=== PATIENT | female | born 1965 | race Two or more races ===

== ENCOUNTER 2020-04-09 07:29 | Day surgery (SDC) | payer OTHER, SELFPAY ==
[2020-04-03 19:18] VITALS: BMI 25.0
--- NOTE | 2020-04-08 09:33 | P.CONAN_ITS ---
Documented by User: Concepción Sheffield 04/08/20 09:34 HPI - Anesthesia Eval Consult details Narrative: 54yo F for Colonoscopy PMFSH Past Medical History Medical History Arthritis Back pain Smoker Surgical History Surgical History H/O hemorrhoidectomy (2007) H/O laminectomy H/O tubal ligation H/O: hysterectomy History of colonoscopy Hx of appendectomy (2005) Social History Social History Smoking Status: Current every day smoker Tobacco Type: Cigarette Packs Per Day: 0 Cigarettes Per Day: 4 Years Smoked: 17 Smoked in Last 30 Days: Yes Patient Interested in Nicotine Replacement: No Patient Given Instructions on How to Stop Smoking: Yes Date Education Initiated: 03/27/20 Second Hand Smoke Exposure: No Use of substances other than those prescribed or required for medical reasons: No Advance Directives: No Advance Directives Information Provided: No Advance Directives on File: No Recently lost weight without trying: No Meds Allergies Allergy/AdvReac Type Severity Reaction Status Date / Time Penicillins Allergy Mild ITCH/RASH Unverified 04/04/20 08:21 Home Medications Medication Instructions Recorded Confirmed Type buprenorphine-naloxone [Zubsolv] 3 tab SUBLINGUAL DAILY 04/03/20 04/03/20 History Exam Exam Date and Time: April 08, 2020 0933 Height,Weight and Vital Signs: Height 5 ft 7 in Weight 72.575 kg Assessment and Plan Assessment Anesthesia Assessment: Chart Reviewed Documented by User: Donavan Galvan 04/09/20 08:46 [facility] Past Medical History Medical History Arthritis Back pain Smoker Surgical History Surgical History H/O hemorrhoidectomy (2007) H/O laminectomy H/O tubal ligation H/O: hysterectomy History of colonoscopy Hx of appendectomy (2005) Social History Social History Smoking Status: Current every day smoker Tobacco Type: Cigarette Packs Per Day: 0 Cigarettes Per Day: 4 Years Smoked: 17 Smoked in Last 30 Days: Yes Patient Interested in Nicotine Replacement: No Patient Given Instructions on How to Stop Smoking: Yes Date Education Initiated: 03/27/20 Second Hand Smoke Exposure: No Use of substances other than those prescribed or required for medical reasons: No Advance Directives: No Advance Directives Information Provided: No Advance Directives on File: No Recently lost weight without trying: No Meds Allergies Allergy/AdvReac Type Severity Reaction Status Date / Time Penicillins Allergy Mild ITCH/RASH Unverified 04/04/20 08:21 Home Medications Medication Instructions Recorded Confirmed Type buprenorphine-naloxone [Zubsolv] 3 tab SUBLINGUAL DAILY 04/03/20 04/03/20 History Exam Airway Mallampati Class: II TM Dist: >3cm Neck ROM: Full Denture: Upper
[2020-04-09 08:43] VITALS: BP 112/62; PULSE 66; RESP 16; TEMP 36; O2SAT 97
[2020-04-09] MEDS: Lactated Ringers 1,000 ML 100 ML IVCONT (08:54)
--- NOTE | 2020-04-09 09:13 | W.PM.OPN ---
Operative Note Operative Note Date of Service: 04/09/20 Narrative: Pre-op diagnosis: Screening, chronic constipation Post-op diagnosis: other (colon polyps, diverticulosis, hemorrhoids) Procedure: COLONOSCOPY TILL CECUM WITH BIOPSIES Consent: Indications for the procedure and potential complications of bleeding, perforation, reaction to medications and missed diagnosis were discussed with the patient and informed consent was obtained. Instrument: Olympus PCF H 190 L variable stiffness pediatric colonoscope Monitoring: Vital signs and clinical assessment, intermittent blood pressure monitoring, continuous EKG monitoring, Pulse oximetry and Carbon Dioxide monitoring were done throughout the procedure. Colon withdrawl time was 22 minutes. Procedure: The patient was placed in the left lateral decubitis position and pre-procedure medications were administered. After a digital rectal examination of the ano-rectum, the video colonoscope was inserted into the rectum and advanced through the colon to the cecum. The colonoscope was slowly withdrawn in a retrograde panoramic fashion and the colon mucosa was carefully examined including a retroflexed view of the rectum. Findings and interventions are described below. Procedure Difficulty: LLQ pressure applied to intubate the transverse colon/cecum Findings: Terminal Ileum: Not evaluated Cecum: Normal Ascending Colon: Normal Transverse Colon: Normal Descending Colon: Moderate diverticulosis Sigmoid Colon: A few 4-5 mm diminutive polyps - two were biopsied. Moderate to severe diverticulosis Rectum: Normal Ano-rectum: Small internal hemorrhoids Colon preparation: Good after copious irrigation Impression and Post Procedure Diagnosis: Colonoscopy Findings: Two diminutive polyps were biopsied. Moderate diverticulosis seen in the left colon Small hemorrhoids on retroflexed exam. Plan: Await pathology results Patient has an appointment on 04/22/20 in the GI Clinic with Alta Bejarano NP. Repeat Colonoscopy interval based on path results - in 5 years if polyps are adenomatous and due to FH of colon polyps. Above findings were reviewed with the patient and colon polyps and diverticulosis handouts were given in the discharge area. Surgeon: Alejo Sharp MD Anesthesia: MAC (NOEL Kevin) Estimated blood loss (mL): 0 Pathology: other (A. SC polyp x 1) Condition: stable Disposition: PACU
--- NOTE | 2020-04-09 09:13 | MHC.SHP ---
Pre-Procedural Eval Section A The patient is an INPATIENT: No The History & Physical has been completed within 30 days and I have reviewed it.: No Section B Chief Complaint: SCREENING, FAMILY HX OF COLON POLYPS Details of Present Illness: screening, constipation Relevant Family History (Specify if Yes): Yes Relevant Social History: Tobacco Use Present Medications: see Short Stay Collaborative assessment Medical History: Significant History (Constipation. Hemorrhoids. Low back pain. Pre-diabetes. Dyspepsia. Incontinence. Vaginal prolapse. Hypertension. Opioid dependency. ) History of Previous Operations: Relevant previous surgery/procedure and date(s) (hysterectomy 2005 appendectomy 2004 back surgery 2004 hemorrhoidectomy colonoscopy-Dr. Long 2006 ) Allergies: Allergies Allergy/AdvReac Type Severity Reaction Status Date / Time Penicillins Allergy Mild ITCH/RASH Verified 04/09/20 08:54 Review of Systems Sugical H&P ROS: Negative: Constitution, Cardiovascular and Respiratory and Yes, Specify: Gastrointestinal (constipation) Exam Surgical H&P Exam: Normal: Heart, Normal: Lungs, Normal: Extremities and Normal: Abdomen Plan Diagnosis/Plan: Unchanged Patient has been examined and remains a candidate for the planned procedure
[2020-04-09 10:07] VITALS: BP 126/72; PULSE 62; RESP 16; TEMP 36.2; O2SAT 99
[2020-04-09 10:22] VITALS: BP 122/71; PULSE 57; RESP 16; TEMP 36.1; O2SAT 97
--- NOTE | 2020-04-09 10:46 | HO.POSTANES ---
Post Anesthesia Evaluation Post Anesthesia Evaluation Vital Signs: Vital Signs Temp Pulse Resp BP Pulse Ox 04/09/20 10:22 97 F 57 16 122/71 97 04/09/20 10:07 97.1 F 62 16 126/72 99 04/09/20 08:43 96.8 F 66 16 112/62 97 Anesthesia: Monitored Mental Status: Awake Pain Control: Satisfactory Nausea/Vomiting: None Hydration: Adequate Anesthesia-Related Issues: No Anes. Related Issues
== END 2020-04-09 10:55 | disposition home or self-care (01) ==
PROVIDERS: PCP Internal Medicine Geriatric Medicine; Visit Provider Internal Medicine Gastroenterology
PROC: 0DJD8ZZ Inspection of Lower Intestinal Tract, Via Natural or Artificial Opening Endoscopic (ICD-10-PCS; CPT 45378; principal; 2020-04-09 09:30)
DX: Z12.11 Encounter for screening for malignant neoplasm of colon (principal); K63.5 Polyp of colon; K57.30 Diverticulosis of large intestine without perforation or abscess without bleeding; K64.8 Other hemorrhoids; K59.09 Other constipation; Z83.71 Family history of colonic polyps; Z88.0 Allergy status to penicillin
CPT/HCPCS: 45380; 88305

== ENCOUNTER → 2020-04-22 15:24 | Outpatient (BNVA) | payer OTHER, SELFPAY | PROVIDERS: PCP Internal Medicine Geriatric Medicine; Visit Provider Nurse Practitioner | DX: Z76.89 Persons encountering health services in other specified circumstances (principal) ==

== ENCOUNTER 2020-09-03 12:39 | Outpatient (REF) | payer BC, SELFPAY ==
--- NOTE | ~2020-09-03 | XR_ITS ---
EXAMINATION: LEFT FOOT AND LEFT HIP X-RAY CLINICAL INFORMATION: Pain COMPARISON: None TECHNIQUE: 3 views of the left foot and 3 views of the left hip FINDINGS: Bone alignment is normal. No fracture or dislocation is seen. The joint spaces are normal. There are calcaneal spurs. Soft tissues are otherwise normal. XR/XR hip LT min 2V IMPRESSION: Calcaneal spurs otherwise unremarkable exam. EXAMINATION: Left hip x-ray CLINICAL INFORMATION: Pain COMPARISON: None. TECHNIQUE: 2 views of the left hip FINDINGS: Bone alignment is normal. No fracture or dislocation is seen. There are small inferior acetabular osteophytes. Joint spaces otherwise normal. There are surgical cheri project inferior to the pubic symphysis. Soft tissues are otherwise normal. IMPRESSION: Mild degenerative changes.
--- NOTE | ~2020-09-03 | XR_ITS ---
EXAMINATION: LEFT FOOT AND LEFT HIP X-RAY CLINICAL INFORMATION: Pain COMPARISON: None TECHNIQUE: 3 views of the left foot and 3 views of the left hip FINDINGS: Bone alignment is normal. No fracture or dislocation is seen. The joint spaces are normal. There are calcaneal spurs. Soft tissues are otherwise normal. XR/XR foot LT min 3V IMPRESSION: Calcaneal spurs otherwise unremarkable exam. EXAMINATION: Left hip x-ray CLINICAL INFORMATION: Pain COMPARISON: None. TECHNIQUE: 2 views of the left hip FINDINGS: Bone alignment is normal. No fracture or dislocation is seen. There are small inferior acetabular osteophytes. Joint spaces otherwise normal. There are surgical cheri project inferior to the pubic symphysis. Soft tissues are otherwise normal. IMPRESSION: Mild degenerative changes.
== END 2020-09-03 12:40 | disposition home or self-care (01) ==
LOC: HO.XRAY 12:39
PROVIDERS: PCP Internal Medicine Geriatric Medicine; Visit Provider Internal Medicine Geriatric Medicine
DX: M25.552 Pain in left hip (principal); M79.672 Pain in left foot
CPT/HCPCS: 73502; 73630

== ENCOUNTER 2020-10-29 08:53 | Outpatient (REF) | payer BC, SELFPAY ==
--- NOTE | ~2020-10-29 | XR_ITS ---
EXAMINATION: XR PELVIS CLINICAL INFORMATION: Pain COMPARISON: X-ray of the left hip August 2020 x-ray the pelvis November 2012 TECHNIQUE: AP view of the pelvis. FINDINGS: Postsurgical changes just caudal to the symphysis pubis unchanged with metallic Noted. The bone and joints in the pelvis are otherwise unremarkable. Postsurgical changes overlying the lower lumbar sacral spine unchanged. XR/XR pelvis 1-2V IMPRESSION: No acute abnormality. Stable postsurgical changes
== END 2020-10-29 08:54 | disposition home or self-care (01) ==
LOC: HO.HOSX 08:53
PROVIDERS: Visit Provider Physician Assistant
DX: M54.32 Sciatica, left side (principal)
CPT/HCPCS: 72170

== ENCOUNTER 2021-07-22 12:26 | Outpatient (REF) | payer BC, SELFPAY ==
--- NOTE | ~2021-07-22 | XR_ITS ---
EXAMINATION: XR ANKLE, LEFT CLINICAL INFORMATION: Pain COMPARISON: None TECHNIQUE: AP, lateral, and mortise views of the left ankle. FINDINGS: Bone alignment is normal. No fracture or dislocation is seen. The ankle mortise is normal. There are calcaneal spurs. XR/XR ankle LT min 3V IMPRESSION: Calcaneal spurs.
== END 2021-07-22 12:27 | disposition home or self-care (01) ==
LOC: HO.XRAY 12:26
PROVIDERS: PCP Internal Medicine Geriatric Medicine; Visit Provider Internal Medicine Geriatric Medicine
DX: M25.572 Pain in left ankle and joints of left foot (principal)
CPT/HCPCS: 73610

== ENCOUNTER 2022-12-09 09:30 | Outpatient (REF) | payer BC, SELFPAY ==
[2022-12-09 11:49] LABS: Alanine Aminotransferase 43 U/L (0-31); Albumin Level 4.1 g/dL (3.5-5.0); Alkaline Phosphatase 108 U/L (39-117); Aspartate Amino Transferase 31 U/L (5-31); Bilirubin Direct 0.2 mg/dL (0.0-0.5); Bilirubin Total 0.7 mg/dL (0.0-1.0); Total Protein 7.4 g/dL (6.5-8.0)
== END 2022-12-09 09:31 | disposition home or self-care (01) ==
LOC: HO.HHCL 09:30
PROVIDERS: Visit Provider Emergency Medicine
DX: F11.91 Opioid use, unspecified, in remission (principal)
CPT/HCPCS: 36415; 80076

== ENCOUNTER → 2024-05-03 10:59 | Outpatient (BNV) | payer BC, SELFPAY | PROVIDERS: Visit Provider Radiology Diagnostic Radiology | DX: R07.82 Intercostal pain (principal) | CPT/HCPCS: 71101 ==

== ENCOUNTER 2024-07-18 10:45 | Outpatient (REF) | payer BC, SELFPAY ==
[2024-07-18 14:09] LABS: Alanine Aminotransferase 43 U/L (0-31); Albumin Level 4.2 g/dL (3.5-5.0); Alkaline Phosphatase 168 U/L (39-117); Aspartate Amino Transferase 29 U/L (5-31); Bilirubin Direct 0.3 mg/dL (0.0-0.5); Bilirubin Total 0.9 mg/dL (0.0-1.0); Total Protein 7.4 g/dL (6.5-8.0)
[2024-07-18 14:22] LABS: HIV AB/AG Nonreactive (Nonreactive); HIV Num 1 0.07 S/CO (0.00-0.99); ~HepC Num1 0.25 S/CO (0.00-0.79); ~Hepatitis C Antibody Nonreactive (Nonreactive)
== END 2024-07-18 10:46 | disposition home or self-care (01) ==
LOC: HO.HHCL 10:45
PROVIDERS: Visit Provider Emergency Medicine
DX: F11.91 Opioid use, unspecified, in remission (principal)
CPT/HCPCS: 36415; 80076; 86803; 87389

== ENCOUNTER 2024-11-24 19:43 | Emergency (ER) | payer BC, SELFPAY ==
[2024-11-24 19:49] VITALS: BP 138/65; PULSE 73; RESP 16; TEMP 36.3; O2SAT 95; BMI 23.4
[2024-11-24 20:00] LABS: MANUAL DIFF FLAG NO
[2024-11-24 20:11] LABS: Hematocrit 41.8 % (37.0-47.0); Hemoglobin 14.8 g/dl (12.0-16.0); Imm Gran Abs Auto 0.03 X10*3/uL (0.00-0.03); Imm Gran Pct Auto 0.3 % (0.0-0.4); Lymphocytes Absolute Auto 2.2 X10*3/uL (1.2-4.9); Mean Corpuscular HGB Conc 35.4 g/dl (31.0-35.0); Mean Corpuscular Hemoglobin 30.9 pg (27.0-33.0); Mean Corpuscular Volume 87.3 fL (80.0-98.0); NRBC Abs Auto 0.000 X10*3/uL (0.0-0.012); NRBC Pct Auto 0.0 /100WBC (0.0-0.2); Platelet Count 200 X10*3/uL (160-400); Red Blood Count 4.79 X10*6/uL (4.20-5.50); White Blood Count 8.9 X10*3/uL (4.8-10.8)
[2024-11-24 20:24] LABS: Alanine Aminotransferase 33 U/L (0-31); Albumin Level 4.3 g/dL (3.5-5.0); Alkaline Phosphatase 241 U/L (39-117); Anion Gap 13 (12-20); Aspartate Amino Transferase 24 U/L (5-31); Blood Urea Nitrogen 17 mg/dL (9-16); Calcium 9.1 mg/dL (8.4-10.2); Carbon Dioxide 28 mmol/L (22-29); Chloride 99 mmol/L (96-108); Creatinine Clr Calc Pharmacy 68.5; Estimated Glomerular Filt Rate > 60; Magnesium 1.8 mg/dL (1.6-2.6); Potassium 4.2 mmol/L (3.3-5.1); Sodium 136 mmol/L (135-145); Total Protein 7.0 g/dL (6.5-8.0)
[2024-11-24 21:44] LABS: Appearance Urine Clear; Glucose Urine UA >=1000 mg/dL (Negative); PH 5.5 (5.0-9.0); Specific Gravity - Urine >= 1.030 (1.005-1.025); UMIC TRIGGER UACC YES
--- NOTE | 2024-11-24 21:47 | PC.NURSE ---
pt arrives to ED from . Pt had baseline labs obtained on arrival with critical glucose value of 392. IV access was obtained in left FA, pt placed on ekg monitor. pt is a&o x4- independent at baseline. Primarily maltese speaking- returned from [place] yesterday pt sts that while pt was in [place] she used her mother's glucose meter and her first reading was 480. she states at her lowest was 180 in the AM prior to eating.
--- NOTE | 2024-11-24 21:53 | ED_ITS ---
HPI - General Adult General Chief complaint: General Medical Stated complaint: high blood sugar Time Seen by Provider: 11/24/24 21:32 Source: patient Mode of arrival: ambulatory Limitations: no limitations History of Present Illness ED Provider: Dr. Twila Peres HPI narrative: patient comes to the emergency room complaining of new onset of a high blood sugar. Patient states that she recently returned from [place]. Patient states that while she was there, she noticed that she was drinking a large amount of water and urinating quite a bit. Patient states that both her mother and sister are diabetic, so they checked her sugar. Patient states that her sugar was in the 400s. So patient's knowledge, she has never been told that she is diabetic. Patient states that she has not been seen by a PCP in several years. Related Data Home Medications ?Medication ?Instructions ?Recorded ?Confirmed buprenorphine 1.4 mg-naloxone 0.36 3 tab sublingual DA CHARMAINE 04/03/20 04/03/20 mg sublingual tablet (Zubsolv) Previous Rx's ?Medication ?Instructions ?Recorded lidocaine 5 % topical patch 1 patch topical DAILY #15 ea 05/03/24 metformin 1,000 mg tablet 1,000 mg PO DAILY #90 tabs 0 11/24/24 Allergies Allergy/AdvReac Type Severity Reaction Status Date / Time Penicillins Allergy Mild ITCH/RASH Verified 11/24/24 19:52 Review of Systems 2 Review of Systems: Constitutional : No Weight loss, No Fever, No Chills, No Night Sweats, No Fatigue, No Malaise ENT/Mouth : No Hearing loss, No Ear Pain, No Nasal Congestion, No Sinus Pain, No Hoarseness, No sore throat, No Rhinorrhea, No Swallowing Difficulty Eyes: No Eye Pain, No Swelling, No Redness, No Foreign Body, No Discharge, No Vision Changes Cardiovascular : No Chest Pain, No SOB, No Dyspnea on Exertion, No Orthopnea, No Edema, No Palpitations Respiratory : No Cough, No Sputum, No Wheezing, No Smoke Exposure, No Dyspnea Gastrointestinal : No Nausea, No Vomiting, No Diarrhea, No Constipation, No abdominal Pain, No Hematochezia, No Melena Genitourinary : no irregular bleeding, No Dysuria, No Urinary Frequency, No Hematuria, No Urinary Incontinence, No Urgency, No Flank Pain, No Urinary Flow Changes, No Hesitancy Musculoskeletal : No joint pain, No Myalgias, No Joint Swelling Skin : No Skin Lesions, No rash Neuro : No Weakness, No Numbness, No Paresthesias, No Loss of Consciousness, No Dizziness, No Headache Psych : No Anxiety/Panic, No Depression, No SI/HI/AH/VH, No Social Issues, Heme/Lymph: No Bruising, No Bleeding,No Lymphadenopathy Endocrine: complaining of new onset of polyuria and polydipsia PMFSH Past Medical History Medical History Smoker Arthritis Back pain Surgical History H/O hemorrhoidectomy (2007) H/O laminectomy H/O tubal ligation H/O: hysterectomy History of colonoscopy Hx of appendectomy (2005) Family History Family History Father Colon cancer Mother HTN (hypertension) Diverticulitis Social History Social History (System 12/15/23 @ 09:56 by Carmen Reese) Alcohol intake: current Alcohol intake frequency: holidays/special occasions only Cigarette Packs Per Day: 0 Cigarettes Per Day: 4 Years Smoked: 17 Smoked in Last 30 Days: Yes Second Hand Smoke Exposure: No Use of substances other than those prescribed or required for medical reasons: No Advance Directives: No Advance Directives Information Provided: No Do you have a plan to hurt others: No Plan Patient : No Current occupational status: employed 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 Oriented X3. No acute distress. Eyes: Pupils equal, round and reactive to light. ENT: Pharynx normal. Neck: Normal inspection. Neck supple. No lymph nodes noted. No crepitus CVS: Normal heart rate and rhythm. Pulses normal. Normal S1 and S2 Respiratory: No respiratory distress. Breath sounds normal. No Wheezing. No rales Abdomen: Soft and nontender. No rigidity. No distention. Skin: Skin warm and dry. Normal skin color. Normal skin turgor. Extremities: No lower extremity edema. No Lacerations. No Rash Neuro: Oriented X 3. No motor deficit. No sensory deficit. Moving all extremities. No slurred speech. CN 2 through 12 grossly intact Psych: calm, cooperative, normal affect Vital Signs: Vital Signs - 24 hr 08/01/25 19:49 11/24/24 22:43 Temperature 97.3 F Pulse Rate 73 59 Respiratory Rate 16 16 Blood Pressure 138/65 127/74 Pulse Oximetry 95 97 Oxygen Delivery Method Room Air Room Air BMI result Body Mass Index 23.4 Course Course Course Narrative: patient reports new onset polyuria polydipsia, patient's family checked her glucose for several days throughout last week, patient reports a blood glucose of an average of 400 today, patient's glucose 392. Patient receiving IV fluids and IV insulin. Medications Administered Discontinued Medications Generic Name Dose Route Start Last Admin Trade Name Freq PRN Reason Stop Dose Admin Sodium Chloride 1,000 mls @ 999 mls/hr 11/24/24 21:53 11/24/24 22:23 Ns IVCONT 11/24/24 22:53 999 mls/hr .Q1H1M ONE Administration Insulin Human Regular 5 unit 11/24/24 21:53 11/24/24 22:20 Insulin Regular, Human 100 Unit/Ml 10 Ml Vial IVPUSH 11/24/24 21:54 5 unit ONCE ONE Administration Medical Decision Making Medical Decision Making [facility] Narrative: my interpretation of labs: No significant abnormality patient's hematology or chemistry, glucose 392, anion gap 13 I discussed with the patient that we will be giving her insulin here in the emergency room to decrease her glucose. However, at home she will be starting on metformin. Discussed with the patient to do start low-dose and eventually go up to 1000 mg within a couple of weeks. Patient aware that she will likely have GI symptoms patient's glucose improved to 187, patient asymptomatic. Patient will follow- up with her PCP Differential Diagnosis Differential Diagnoses: The differential diagnosis associated with the presentation includes ( Hyperglycemia, new onset type 2 diabetes) Admission/Observation Consideration of admission/observation: Escalation of care including admission/observation considered ( given patient's new diagnosis of diabetes, observation was considered) Lab Data [facility] Lab Attestation statement: I reviewed the patient's lab results. 11/24/24 19:56 11/24/24 19:56 Labs: Lab Results 11/24/24 11/24/24 11/24/24 Range/Units 19:56 21:25 21:35 WBC 8.9 (4.8-10.8) X10*3/uL RBC 4.79 (4.20-5.50) X10*6/uL Hgb 14.8 (12.0-16.0) g/dl Hct 41.8 (37.0-47.0) % MCV 87.3 (80.0-98.0) fL MCH 30.9 (27.0-33.0) pg MCHC 35.4 H (31.0-35.0) g/dl RDW 11.9 (11.0-16.0) % Plt Count 200 (160-400) X10*3/uL MPV 10.2 (9.4-12.3) fL Immature Gran % (Auto) 0.3 (0.0-0.4) % Neut % (Auto) 63.8 (45-73) % Lymph % (Auto) 24.4 (20-40) % [place] % (Auto) 8.8 (2-11) % Eos % (Auto) 2.1 (0-4) % Baso % (Auto) 0.6 (0-2) % Lymph # (Auto) 2.2 (1.2-4.9) X10*3/uL [place] # (Auto) 0.8 (0.1-1.2) X10*3/uL Eos # (Auto) 0.2 (0.0-0.4) X10*3/uL Baso # (Auto) 0.1 (0.0-0.2) X10*3/uL Abs Immat Gran (auto) 0.03 (0.00-0.03) X10*3/uL Absolute Neuts (auto) 5.7 (2.0-8.3) x10*3/uL Absolute Nucleated RBC 0.000 (0.0-0.012) X10*3/uL Nucleated RBC % (auto) 0.0 (0.0-0.2) /100WBC Hold Blue Top SEE NOTE Sodium 136 (135-145) mmol/L Potassium 4.2 (3.3-5.1) mmol/L Chloride 99 (96-108) mmol/L Carbon Dioxide 28 (22-29) mmol/L Anion Gap 13 (12-20) BUN 17 H (9-16) mg/dL Creatinine 0.88 (0.5-1.4) mg/dL Estim Creat Clear Calc 68.5 Estimated GFR > 60 POC Glucose (60-115) mg/dL Random Glucose 392 H* (60-115) mg/dL Calcium 9.1 (8.4-10.2) mg/dL Magnesium 1.8 (1.6-2.6) mg/dL Total Bilirubin 0.8 (0.0-1.0) mg/dL AST 24 (5-31) U/L ALT 33 H (0-31) U/L Alkaline Phosphatase 241 H (39-117) U/L Total Protein 7.0 (6.5-8.0) g/dL Albumin 4.3 (3.5-5.0) g/dL Urine Color Yellow Urine Appearance Clear Urine pH 5.5 (5.0-9.0) Ur Specific Martin >= 1.030 H (1.005-1.025) Urine Protein Negative (Neg-Trace) mg/dL Urine Glucose (UA) >=1000 H (Negative) mg/dL Urine Ketones Negative (Negative) mg/dL Urine Blood Negative (Negative) Urine Nitrite Negative (Negative) Ur Leukocyte Esterase Negative (Negative) Urine RBC 0-2 (0-2) /HPF Urine WBC 0-5 (0-5) /HPF Ur Squamous Epith Cells 0-2 (0-2) /HPF Urine Bacteria None Seen (None Seen) Hyaline Casts 0-2 (0-2) /LPF 11/24/24 Range/Units 22:52 WBC (4.8-10.8) X10*3/uL RBC (4.20-5.50) X10*6/uL Hgb (12.0-16.0) g/dl Hct (37.0-47.0) % MCV (80.0-98.0) fL MCH (27.0-33.0) pg MCHC (31.0-35.0) g/dl RDW (11.0-16.0) % Plt Count (160-400) X10*3/uL MPV (9.4-12.3) fL Immature Gran % (Auto) (0.0-0.4) % Neut % (Auto) (45-73) % Lymph % (Auto) (20-40) % [place] % (Auto) (2-11) % Eos % (Auto) (0-4) % Baso % (Auto) (0-2) % Lymph # (Auto) (1.2-4.9) X10*3/uL [place] # (Auto) (0.1-1.2) X10*3/uL Eos # (Auto) (0.0-0.4) X10*3/uL Baso # (Auto) (0.0-0.2) X10*3/uL Abs Immat Gran (auto) (0.00-0.03) X10*3/uL Absolute Neuts (auto) (2.0-8.3) x10*3/uL Absolute Nucleated RBC (0.0-0.012) X10*3/uL Nucleated RBC % (auto) (0.0-0.2) /100WBC Hold Blue Top Sodium (135-145) mmol/L Potassium (3.3-5.1) mmol/L Chloride (96-108) mmol/L Carbon Dioxide (22-29) mmol/L Anion Gap (12-20) BUN (9-16) mg/dL Creatinine (0.5-1.4) mg/dL Estim Creat Clear Calc Estimated GFR POC Glucose 187 H (60-115) mg/dL Random Glucose (60-115) mg/dL Calcium (8.4-10.2) mg/dL Magnesium (1.6-2.6) mg/dL Total Bilirubin (0.0-1.0) mg/dL AST (5-31) U/L ALT (0-31) U/L Alkaline Phosphatase (39-117) U/L Total Protein (6.5-8.0) g/dL Albumin (3.5-5.0) g/dL Urine Color Urine Appearance Urine pH (5.0-9.0) Ur Specific Martin (1.005-1.025) Urine Protein (Neg-Trace) mg/dL Urine Glucose (UA) (Negative) mg/dL Urine Ketones (Negative) mg/dL Urine Blood (Negative) Urine Nitrite (Negative) Ur Leukocyte Esterase (Negative) Urine RBC (0-2) /HPF Urine WBC (0-5) /HPF Ur Squamous Epith Cells (0-2) /HPF Urine Bacteria (None Seen) Hyaline Casts (0-2) /LPF Critical Care Time Critical Care Time Critical Care Time: Yes Total Critical Care Time: 40 Attestation: I have personally provided critical care time. Time includes review of lab data, radiology results, discussion with consultants, and monitoring for potential decompensation. Intervention performed as documented. Discharge Plan Discharge Clinical Impression: Diabetes mellitus, new onset Patient Disposition: Home, Self-Care Instructions: Type 2 Diabetes in Adults: New Diagnosis (DC), Diabetes and Nutrition (ED), Diabetes and Exercise (ED), Type 2 Diabetes Management for Adults (ED) Additional Instructions: Please follow-up with your primary care physician tomorrow. If you have any worsening or new symptoms, please return to the emergency room or call 911 Prescriptions: New metformin 1,000 mg tablet 1,000 mg PO DAILY Qty: 90 0RF Rx Instructions: for the 1st week, take half tablet b.i.d., then starting the 2nd week, 1 tablet p.o. b.i.d. No Action Zubsolv 1.4-0.36 mg tablet, sublingual 3 tab sublingual DAILY lidocaine 5 % adhesive patch,medicated 1 patch topical DAILY Qty: 15 0RF Rx Instructions: leave on most painful area for up to 12 hrs Stand Alone Forms: Work/School Release Print Language: Cuban
[2024-11-24 22:43] VITALS: BP 127/74; PULSE 59; RESP 16; O2SAT 97
--- NOTE | 2024-11-24 22:54 | PC.NURSE ---
POC 187 notified
[2024-11-24 22:56] LABS: Glucose, Whole Blood 187 mg/dL (60-115)
[2024-11-25 00:07] VITALS: BP 127/74; PULSE 59; RESP 16; TEMP 36.8; O2SAT 97
[2024-11-25 03:16] LABS: Hemoglobin A1C 395.5122 umol/L; Total Hemoglobin (HGBA1C) 3835.2256 umol/L
[2024-11-27 09:24] LABS: Glucose, Whole Blood 376 mg/dL (60-115)
== END 2024-11-25 00:07 | disposition home or self-care (01) ==
PROVIDERS: Emergency Provider Emergency Medicine
DX: E11.9 Type 2 diabetes mellitus without complications (principal); E16.2 Hypoglycemia, unspecified
CPT/HCPCS: 36415; 80053; 81001; 82947; 83036; 83735; 85025; 96361; 96374; 99284

== ENCOUNTER 2025-03-27 09:15 | Outpatient (REF) | payer BC, SELFPAY ==
--- OUTSIDE RECORDS SUMMARY | 2025-03-27 09:48 | XMS_ITS | Encounter Summary ---
Author Organization [employer] Address [address] [place] [address] Care Team Providers Care Cytopathology Technologist Name Role Phone Lucero Caraballo NP Primary Care Provider [phone] Encounter Details Date Type Department Care Team (Late st Contact Info) Description 10/06/2022 Abstract [facility] MEDICINE [address] [place] [id number] Name, MD Reddy [address] [place] [id number] Social History Tobacco Use Types Packs/Day Years Used Date Smoking Tobacco: Never Assessed Comments Unknown Sex and Gender Information Value Date Recorded Sex Assigned at Female 02/23/2022 10:16 AM EDT Legal Sex Female 10:16 AM EDT Gender Identity Female 02/23/2022 10:16 AM EDT Sexual Orientation Straight 07/28/2022 10 :26 AM EDT COVID-19 Exposure Response Date Recorded In the last 10 days, have yo u been in contact with someone who was confirmed or suspected to have Coronavirus/COVID-19? No / Unsure 09/22/2022 9:29 AM EDT documented as of this encounter Plan of Treatment Upcoming Encounters Date Type Department Care Team (Late st Contact Info) Description 05/02/2025 11:30 AM EST Office Visit [facility] MEDICINE [address] [place] [id number] Lucero Caraballo NP [address] [place] [address] 05/29/2025 10:00 AM EST Office Visit [facility] [address] [facility] [place] [address] Les Santos MD [address] [place] [address] documented as of this encounter Procedures Procedure Name Priority Date/Time Associated Diagnosis Comments COLONOSCOPY Routine 04/09/2020 10:50 AM EST documented in this encounter Results * Hm Colonoscopy (04/09/2020 10:50 AM EST) Colonoscopy Normal Normal Narrative Sammie Marin - 04/09/2020 10:50 AM EST Recommended 5 year follow up us Historical Provider HEALTH MAINTENANCE Final Result documented in this encounter Visit Diagnoses Not on filedocumented in this encounter Care Teams Cytopathology Technologist Relationship Specialty Start Date End Date Lucero Caraballo NP [address] [place] [address] PCP - General Family Medicine 03/14/25 documented as of this encounter
--- OUTSIDE RECORDS SUMMARY | 2025-03-27 09:48 | XMS_ITS | Encounter Summary ---
Author Organization [employer] [facility] Address [address] [place] [address] [address] [place] [address] Care Team Providers Care Trimmer Machine Operator Name Role Phone Lucero Caraballo NP Primary Care Provider [phone] Reason for Visit * Reason Comments Med Refill Encounter Details Date Type Department Care Team (Late st Contact Info) Description 06/22/2023 Refill [facility] [address] [place] [address] Les Santos MD [address] [place] [address] Uncomplicated opioid dependence (CMS/HCC) Social History Tobacco Use Types Packs/Day Years Used Date Smoking Tobacco: Never Assessed Comments Unknown Sex and Gender Information Value Date Recorded Sex Assigned at Female 02/23/2022 10:16 AM EDT Legal Sex Female 10:16 AM EDT Gender Identity Female 02/23/2022 10:16 AM EDT Sexual Orientation Straight 07/28/2022 10 :26 AM EDT documented as of this encounter Plan of Treatment Upcoming Encounters Date Type Department Care Team (Late st Contact Info) Description 05/02/2025 11:30 AM EST Office Visit [facility] [address] [place] [address] Lucero Caraballo NP [address] [place] [address] 05/29/2025 10:00 AM EST Office Visit [facility] [address] [place] [address] Les Santos MD [address] [place] [address] documented as of this encounter Visit Diagnoses Diagnosis Uncomplicated opioid dependence (CMS/HCC) (HCC) documented in this encounter Care Teams Trimmer Machine Operator Relationship Specialty Start Date End Date Lucero Caraballo NP [address] [place] [address] PCP - General Family Medicine 03/14/25 documented as of this encounter
--- OUTSIDE RECORDS SUMMARY | 2025-03-27 09:48 | XMS_ITS | Encounter Summary ---
Author Organization [employer] [facility] Address [address] [place] [address] 7 [place] [address] Care Team Providers Care Customer Strategy Manager Name Role Phone Lucero Caraballo NP Primary Care Provider [phone] Reason for Visit * Reason Comments Med Refill Encounter Details Date Type Department Care Team (Late st Contact Info) Description 03/02/2023 Refill [facility] [address] [place] [phone] Les Santos MD [address] [place] [address] Uncomplicated opioid dependence (CMS/HCC) Social History Tobacco [...] Description 05/02/2025 11:30 AM EST Office Visit [facility] [address] [place] [address] Lucero Caraballo NP [address] [place] [address] 05/29/2025 10:00 AM EST Office Visit [facility] [address] [place] [address] Les Santos MD [address] [place] [address] documented as of this encounter Visit Diagnoses Diagnosis Uncomplicated opioid dependence (CMS/HCC) (HCC) documented in this encounter Care Teams Customer Strategy Manager Relationship Specialty Start Date End Date Lucero Caraballo NP [address] [place] [address] PCP - General Family Medicine 03/14/25 documented as of this encounter
--- OUTSIDE RECORDS SUMMARY | 2025-03-27 09:48 | XMS_ITS | Clinical Summary ---
Author Organization [employer] Address [address] [facility] 7t [place] [address] Care Team Providers Care Public Health Specialist Name Role Phone Lucero Caraballo NP Primary Care Provider [phone] Allergies Active Allergy Reactions Criticality Noted Date Comments Penicillin V 06/06/2010 Childhood reaction: rash Medications naloxone (Narcan) 4 mg/0.1 mL nasal spray spray 0.1 milliliter by intranasal route in 1 nostril may repeat dose every 2-3 minutes as needed alternating nostrils with each dose 03/11/20 21 Active buprenorphine -naloxone (Suboxone) 2-0.5 MG per sublingual filmIndicatio ns:Uncomplica tino opioid dependence (CMS/HCC) ([facility]) Place 3 Film under the tongue Once per day. 84 Film 2 02/28/20 25 026 Active metFORMIN (Glucophage) 850 MG tabletIndicat ions:Type 2 diabetes mellitus without complication, without long-term current use of insulin ([facility]) Take 1 tablet (850 mg) by mouth with breakfast and with evening meal. 60 tablet 1 5 6:00 PM EST 03/14/20 25 026 Active amLODIPine (Norvasc) 5 MG tablet take 1 tablet by oral route every day 08/28/19 21 025 Discontinued(M ed list cleanup (will not trigger notification to Pharmacy)) aspirin 81 MG EC tablet take 1 tablet by oral route every day 09/20/19 15 025 Discontinued(M ed list cleanup (will not trigger notification to Pharmacy)) celecoxib (CeleBREX) 200 MG capsule take 1 capsule by oral route every day as needed 07/16/19 025 Discontinued(M ed list cleanup (will not trigger notification to Pharmacy)) docusate sodium (Colace) 100 MG capsule 2 capsules PO HS prn constipation. Take with large glass of liquids. This is a stool softener. 02/10/20 17 025 Discontinued(M ed list cleanup (will not trigger notification to Pharmacy)) sennosides (Senokot) 8.6 MG tablet 1-2 tablets PO QHS prn constipation (natural stimulant) 02/10/20 17 025 Discontinued(M ed list cleanup (will not trigger notification to Pharmacy)) buprenorphine -naloxone (Suboxone) 2-0.5 MG per sublingual filmIndicatio ns:Uncomplica tino opioid dependence (CMS/HCC) ([facility]) Place 3 Film under the tongue Once per day. 84 Film 2 12/09/19 025 Discontinued(R eorder (will not trigger notification to Pharmacy)) metFORMIN (Glucophage) 1000 MG tablet Take 500 mg by mouth with breakfast and with evening meal. 11/26/19 025 Discontinued(D ose adjustment) Hospital, Clinic, or Other Facility Administered Medication Ordered Dose Route Frequency Start Date End Date Status naloxone (Narcan) nasal spray 4 mgIndications:Opioid use disorder in remission 4 mg NA As needed 09/22/2022 Act delgado Active Problems Problem Noted Date Diagnosed Date Prediabetes 07/31/2021 Opioid dependence 12/15/2016 Shoulder pain 06/22/2016 Hypertension 06/27/2013 Chronic cystitis 08/05/2012 Low back pain 08/05/2012 Urinary incontinence 05/13/2012 Vaginal wall prolapse 05/13/2012 Encounters Date Type Department Care Team Description 03/14/2025 2:00 PM EST Office Visit [address] [address] Lucero Caraballo NP Encounter to establish care with new provider (Primary Dx); Encounter for screening mammogram for malignant neoplasm of breast; Screening for colon cancer; Type 2 diabetes mellitus without complication, without long-term current use of insulin (HCC); Encounter for health-related screening 03/14/2025 Travel 03/13/[address] [facility] [address] [place] [phone] Roger Rivas [place] CHARTPREP 03/07/[address] [facility] [address] [place], [place] [phone] Lucero Caraballo NP Pre-visit Planning (SDOH was already completed) 03/06/2025 10:00 AM EST Office Visit [facility] [address] [place] [address] Les Santos MD Opioid dependence on maintenance agonist therapy, no symptoms (CMS/HCC) (HCC) (Primary Dx); Tobacco use 03/06/[address] [facility] [address] [place] [address] [phone] Cordell Brooks Recovery Supports 03/06/2025 Travel 02/26/[address] [facility] [address] [place] [address] Velvet Negro RN Uncomplicated opioid dependence (CMS/HCC) (HCC) from Last 3 Months Immunizations Immunization Administration Dates Next Due Hep B, adult 01/17/2007,08/20/2006,07/20/2006 Influenza injectable quadriv alent IIV4 with preservative 02/27/2019,02/05/2015 Influenza, IIV3, injectable 01/02/2014 Influenza, Split (incl. anthony fied surface antigen) 03/03/2013,05/09/2012 Moderna Covid-19 Vaccine 12+ 10/21/2021,09/26/19 21,08/27/2020 TD (adult), 2 Lf tetanus tox oid, preservative free, adsorbed 07/14/2005 Tdap 02/27/2019 Family History Medical History Relation Name Comments Cancer Father Diabetes Mother Diverticulitis Mother Hypertension Mother Relation Name Status Comments Father Mother Social History Tobacco Use Types Packs/Day Years Used Date Smoking Tobacco: Every Day Cigarettes Smokeless Tobacco: Never Tobacco Cessation:Ready to Q uit: Not Asked; Counseling Given: Not Answered Alcohol Use Standard Drinks/Week Comments Not Currently 0 (1 standard drink = 0.6 oz pur e alcohol) Alcohol Answer Date Recorded How often do you have a drink containing alcohol ? 0 03/14/2025 How many drinks containing a lcohol do you have on a typical day when you are drinking? 0 03/14/2025 How often do you have six or more drinks on one occasion? 0 03/14/2025 Depression Answer Date Recorded Patient Health Questionnaire-9 Score 2 03/06/2025 Patient Health Questionnaire-9 Score 2 03/06/2025 Last PHQ-9: Questionnaire Data Not on file 1 05/06/2024 Housing Stability Answer Date Recorded What is your housing situation today? I have lary estevez 03/06/[address] you li ve. Do you have problems with any of the following? None of the above 03/06/2025 Food Insecurity Answer Date Recorded Within the past 12 months, y ou worried that your food would run out before you got money to buy more: Never True 03/06/2025 Within the past 12 months,th e food you bought just didn't last and you didn't have enough money to get more: Never True 02/2025 Transportation Answer Date Recorded In the past 12 months, has l ack of transportation kept you from medical appts, meetings, work or from getting things needed for daily living? No 03/06/2025 Utilities Answer Date Recorded In the past 12 months, has t he electric, gas, oil or water company threatened to shut off services in your home? No 03/06/2025 Depression Answer Date Recorded Patient Health Questionnaire-2 Score 2 03/06/2025 Internet Access Answer Date Recorded Internet Access Q1 Yes 03/06/2025 Internet Access Q2 Not on file 03/06/2025 Comments No Sex and Gender Information Value Date Recorded Sex Assigned at Female 02/23/2022 10:16 AM EDT Legal Sex Female 10:16 AM EDT Gender Identity Female 02/23/2022 10:16 AM EDT Sexual Orientation Straight 07/28/2022 10 :26 AM EDT Last Filed Vital Signs Vital Sign Reading Time Taken Comments Blood Pressure 140/82 03/14/2025 2:12 PM EST Pulse 88 03/14/2025 2:12 PM EST Temperature 36.7 C (98.1 F) 03/14/2025 2:12 PM EST Respiratory Rate 22 03/14/2025 2:12 PM EST Oxygen Saturation 97% 03/14/2025 2:12 PM EST Inhaled Oxygen Concentration - - Weight 73.1 kg (161 lb 3.2 oz) 03/14/2025 2:12 P M EST Height 162.6 cm (5' 4 ) 03/14/2025 2:12 PM EST Body Mass Index 27.67 03/14/2025 2:12 PM EST Plan of Treatment Upcoming Encounters Date Type Department Care Team (Late st Contact Info) Description 05/02/2025 11:30 AM EST Office Visit [facility] [address] [place] [phone] Lucero Caraballo NP 230 [place] [address] 05/29/2025 10:00 AM EST Office Visit [facility] [address] [place], [place] [phone] Les Santos MD 230 [place], [place] [phone] Health Maintenance Due Date Last Done Comments CT Colonography 1967 FIT DNA/Cologuard 1967 FIT 1967 FOBT 1967 Sigmoidoscopy 1967 Diabetes: Foot Exam 10/01/1977 Eye Exam 10/01/1977 Diabetes: Urine Protein Screening 10/01/1986 Pneumococcal Vaccine: 50+ Years (1 of 2 - PCV) 10/01/1986 Pap Smear 10/01/1988 Cervical Cancer Screening 10/01/1997 HPV/Cotest 10/01/1997 Mammogram 2007 Zoster Vaccines (1 of 2) 10/01/2017 Lipid Panel 07/30/2022 07/30/2021, 09/03/2020 COVID-19 Vaccine ( season) 2024 10/21/2021, 09/25/2020, 08/27/2020 Influenza Vaccine (#1) 2024 9, 02/05/2015, 01/02/2014, Additional history exists Diabetes: Hemoglobin A1C 02/24/2025 11/24/2024, 04/0 09/2021 Colonoscopy 04/09/2025 04/09/2020 Colorectal Cancer Screening 04/09/2025 Alcohol/Substance Use Screening 03/06/2026 03/06/2025 Depression Screening 03/06/2026 03/06/2025, 03/06/20 SDOH Screening 03/06/2026 03/06/2025 Disability Screening 03/14/2026 03/14/2025 Tobacco Screening 03/14/2026 03/14/2025 DTaP/Tdap/Td Vaccines (2 - Td or Tdap) 02/27/2029 02/27/2019, 07/14/2005 RSV Patients and Patients Aged 60 years or older (1 - 1-dose 75+ series) 10/01/2042 Hepatitis B Vaccines Completed 01/17/2007, 08/20/2006, 07/20/2006 HIV Screening Completed 07/18/2024 Hepatitis C Screening Completed 07/18/2024 HIB Vaccines Aged Out No longer eligi ble based on patient's age to complete this topic HPV Vaccines Aged Out No longer eligi ble based on patient's age to complete this topic Hepatitis A Vaccines Aged Out No long er eligible based on patient's age to complete this topic IPV Vaccines Aged Out No longer eligi ble based on patient's age to complete this topic Meningococcal B Vaccine Aged Out No l onger eligible based on patient's age to complete this topic Meningococcal Vaccine Aged Out No daphne sherie eligible based on patient's age to complete this topic RSV under 20 months Aged Out No longe r eligible based on patient's age to complete this topic Rotavirus Vaccines Aged Out No longer eligible based on patient's age to complete this topic Goals Goal Patient Goal Type Associated Problems Recent Progress Patient-Stated? Author Help patients manage their type 2 diabetes Care Plan Help patients manage their type 2 diabetes No Lucero Caraballo NP Patient has chronic kidney disease Care Plan Patient has chronic kidney disease No Lucero Caraballo NP Procedures Procedure Name Priority Date/Time Associated Diagnosis Comments POCT LACEY-14 URINE DRUG SCREEN Routine 03/06/2025 10:02 AM EST Opioid dependence on maintenance agonist therapy, no symptoms (CMS/HCC) (HCC) HEMOGLOBIN A1C Routine 11/24/2024 7:56 PM EDT HEPATITIS C AB W/REFL TO HCV RNA, QN, PCR Routine 07/18/2024 10:48 AM EDT Opioid use disorder in remission HIV 1/2 ANTIGEN/ANTIBODY, FOURTH GENERATION W/RFL Routine 07/18/2024 10:48 AM EDT Opioid use disorder in remission LIPID PANEL, STANDARD Routine 07/30/2021 8:55 AM EDT HM COLONOSCOPY Routine 04/09/2020 10:50 AM EST from Last 3 Months or Most Recently Relevant to Health Maintenance Results * (ABNORMAL) POCT LACEY-14 Urine Drug Screen (03/06/2025 10:02 AM EST) THC Negative Negative Cocaine Screen, Urine Negative Negative Opiate Screen, Urine Negative Negative Methamphetamine Screen Urine Negative Negative Amphetamine Screen, Urine Negative Negative Benzodiazepines Screen, Urine Negative Negative Barbiturate Screen, Urine Negative Negative Methadone Screen, Urine Negative Negative Buprenophine Screen, Urine Positive(A) Negative TCA, Urine Negative Negative MDMA Urine Negative Negative ng/mL Oxycodone Screen, Urine Negative Negative Phencyclidine (PCP), Urine Negative Negative Fentanyl, Urine Negative Negative Urine Urine specimen obtained by clean catch procedure / Unknown 03/06/2025 10:02 AM EST Les Santos MD POINT OF CARE TEST ENTER/EDIT ORDERABLES Final Result * (ABNORMAL) Hemoglobin A1c (11/24/2024 7:56 PM EDT) Hemoglobin A1c 11.6(H) <6.0 % [facility] Comment:Hemoglobin A1C Refer ence Range Adults: 4.8 - 6.0 % Non diabetic: < 6.0 % Goal: < 7.0 %Additional Action Suggested: > 8.0 %Note: Hemoglobin A1c results are invalid for patients with abnormal amounts of HbF. Blood transfusions may impact the HbA1c concentration in the patient sample. Estimated Average Glucose 286 mg/dL [facility] Comment:eAG = Estimated ave rage glucose which is %A1C expressed asaverage glucose, using the formula of the [id number] Glucose study (ADAG), Diabetes Care, Vol.31,#8,2007 11/24/2024 7:56 PM EDT 11/24/2024 9:40 PM EDT us Generic External Data Provider LAB BLOOD ORDERAB LES Final Result Performing Organization Address [facility]/ZIP Co de Phone Number [facility] [address] [place] [address] [phone] * Hepatitis C Antibody with Reflex to HCV, RNA, Quantitative, Real-Time PCR (07/18/2024 10:48 AM EDT) Hepatitis C Antibody Nonreactive Nonreactive [facility] Comment:Antibodies to HCV no t detected; does not exclude early acuteHCV infection. Blood Venous blood specimen / Unknown 07/18/2024 10:48 AM EDT 07/18/2024 1:38 PM EDT us Les Santos MD LAB BLOOD ORDERABLES Final Res ult Performing Organization Address [facility]/ZIP Co de Phone Number [facility] [address] [place] [address] [phone] * HIV-1/2 Antigen and Antibodies, Fourth Generation, with Reflexes (07/18/2024 10:48 AM EDT) HIV AB/AG Nonreactive Nonreactive [facility] Comment:HIV-1 p24 Ag and/or HIV-1/HIV-2 Ab not detected.A test result that is nonreactive does not exclude thepossibility of exposure to or infection with HIV-1 and/orHIV-2. Nonreactive results in this assay for individualswith prior exposure to HIV-1 and/or HIV-2 may be due toantigen and antibody levels that are below the limit ofdetection of this assay.The [employer] HIV Ag/Ab Combo assay result andsupplemental assay results should be interpreted inconjunction with the patient's clinical presentation,history and other laboratory results. If the results areinconsistent with clinical evidence, additional testing issuggested to confirm the result. Blood Venous blood specimen / Unknown 07/18/2024 10:48 AM EDT 07/18/2024 1:38 PM EDT us Les Santos MD LAB BLOOD ORDERABLES Final Res ult Performing Organization Address [facility]/ZIP Co de Phone Number [facility] [address] [place] [address] [phone] * (ABNORMAL) LIPID PANEL, STANDARD (07/30/2021 8:55 AM EDT) Chol/HDLC Ratio 4.0 <5.0 (calc) [facility] Cholesterol, Total 194 <200 mg/dL [facility] HDL Cholesterol 48(L) > OR = 50 mg/dL [facility] LDL Cholesterol 124(H) mg/dL (calc) [facility] Comment: Reference range: <100 Desirable range <100 mg/dL for primary prevention; <70 mg/dL for patients with CHD or diabetic patients with > or = 2 CHD risk factors. LDL-C is now calculated using the Ryan-Tonio calculation, which is a validated novel method providing better accuracy than the Friedewald equation in the estimation of LDL-C. Ryan SS et al. SHAYNA. 2013;310(19): 2758-0635 (http://education.[employer]/faq/SMH036) Non-HDL Cholesterol 146(H) <130 mg/dL (calc) [facility] Comment: For patients with diabetes plus 1 major ASCVD risk factor, treating to a non-HDL-C goal of <100 mg/dL (LDL-C of <70 mg/dL) is considered a therapeutic option. Triglycerides 108 <150 mg/dL [facility] 07/30/2021 8:55 AM EDT us Reddy Herrera MD LAB BLOOD ORDERABLES Final Resul t Performing Organization Address City/[facility]/ZIP Co de Phone Number [facility] [address] [place] [address], * Hm Colonoscopy (04/09/2020 10:50 AM EST) Colonoscopy Normal Normal Narrative Tania, Sammie - 04/09/2020 10:50 AM EST Recommended 5 year follow up us Historical Provider HEALTH MAINTENANCE Final Result from Last 3 Months or Most Recently Relevant to Health Maintenance Additional Health Concerns Active Problems Noted Date Diagnosed Date Help patients manage their type 2 diabetes 03/14 Patient has chronic kidney disease 03/14/2025 Insurance [employer]BS PPO Care Teams Public Health Specialist Relationship Specialty Start Date End Date Lucero Caraballo NP [address] [place] [phone] PCP - General Family Medicine 03/14/25
--- OUTSIDE RECORDS SUMMARY | 2025-03-27 09:48 | XMS_ITS | Encounter Summary ---
Author Organization [employer] [facility] Address [address] [place] [address] [address] [place] [address] Care Team Providers Care Supervisor Machine Setter Name Role Phone Lucero Caraballo NP Primary Care Provider [phone] Reason for Visit * Reason Comments Med Refill Encounter Details Date Type Department Care Team (Late st Contact Info) Description 11/10/2022 Refill [facility] [address] [place] [phone] Les Santos MD [address] [place] [address] Uncomplicated opioid dependence (CMS/HCC) Social History Tobacco [...] Description 05/02/2025 11:30 AM EST Office Visit [facility] [address] [place] [address] Lucero Caraballo NP [address] [place] [address] 05/29/2025 10:00 AM EST Office Visit [facility] [address] [place] [address] Les Santos MD [address] [place] [address] documented as of this encounter Visit Diagnoses Diagnosis Uncomplicated opioid dependence (CMS/HCC) (HCC) documented in this encounter Care Teams Supervisor Machine Setter Relationship Specialty Start Date End Date Lucero Caraballo NP [address] [place] [address] PCP - General Family Medicine 03/14/25 documented as of this encounter
--- OUTSIDE RECORDS SUMMARY | 2025-03-27 09:48 | XMS_ITS | Encounter Summary ---
Author Organization [employer] Address [address] [facility] 7t [place] [address] Care Team Providers Care Assistant Director Of Nursing Name Role Phone Lucero Caraballo NP Primary Care Provider [phone] Reason for Visit * Reason Comments Med Refill Encounter Details Date Type Department Care Team ([facility] Contact Info) Description 09/12/2024 Refill [facility] [address] [place] [address] Les Santos MD [address] [place] [address] Uncomplicated opioid dependence (CMS/HCC) Social History Tobacco Use Types Packs/Day Years Used Date Smoking Tobacco: Every Day Cigarettes Smokeless Tobacco: Never Depression Answer Date Recorded Patient Health Questionnaire-9 Score 0 08/24/2023 Patient Health Questionnaire-9 Score 0 08/24/2023 Last PHQ-9: Questionnaire Data Not on file 0 08/24/2023 Housing Stability Answer Date Recorded What is your housing situation today? I have lary estevez 08/24/[address] you li ve. Do you have problems with any of the following? None of the above 08/24/2023 Food Insecurity Answer Date Recorded Within the past 12 months, y ou worried that your food would run out before you got money to buy more: Never True 08/24/2023 Within the past 12 months,th e food you bought just didn't last and you didn't have enough money to get more: Never True Transportation Answer Date Recorded In the past 12 months, has l ack of transportation kept you from medical appts, meetings, work or from getting things needed for daily living? No 08/24/2023 Utilities Answer Date Recorded In the past 12 months, has t he electric, gas, oil or water company threatened to shut off services in your home? No 08/24/2023 Depression Answer Date Recorded Patient Health Questionnaire-2 Score 0 08/24/2023 Comments Unknown Sex and Gender Information Value [...] 11:30 AM EST Office Visit [facility] [address] [place] [phone] Lucero Caraballo NP [address] [place] [address] 05/29/2025 10:00 AM EST Office Visit [facility] [address] [place] [address] Les Santos MD [address] [place] [address] documented as of this encounter Visit Diagnoses Diagnosis Uncomplicated opioid dependence (CMS/HCC) (HCC) documented in this encounter Additional Health Concerns Assessment Noted Time PHQ-9 Depression Total Score: 0 08/24/19 24 9:55 AM EDT documented as of this encounter Care Teams Assistant Director Of Nursing Relationship Specialty Start Date End Date Lucero Caraballo NP [address] [place] [address] PCP - General Family Medicine 03/14/25 documented as of this encounter
--- OUTSIDE RECORDS SUMMARY | 2025-03-27 09:48 | XMS_ITS | Encounter Summary ---
Author Organization [employer] [facility] Address [address] [place] [address] 7 [place] [address] Care Team Providers Care Porter Luggage Name Role Phone Lucero Caraballo NP Primary Care Provider [phone] Reason for Visit * Reason Comments Med Refill Encounter Details Date Type Department Care Team (Late st Contact Info) Description 08/17/2023 Refill [facility] MEDICINE [address] [place] [address] Les Santos MD [address] [place] [address] Uncomplicated opioid dependence (CMS/HCC) Social History Tobacco [...] Description 05/02/2025 11:30 AM EST Office Visit [facility] MEDICINE [address] [place] [address] Lucero Caraballo NP [address] [place] [address] 05/29/2025 10:00 AM EST Office Visit [facility] MEDICINE [address] [place] [address] Les Santos MD [address] [place] [address] documented as of this encounter Visit Diagnoses Diagnosis Uncomplicated opioid dependence (CMS/HCC) (HCC) documented in this encounter Care Teams Porter Luggage Relationship Specialty Start Date End Date Lucero Caraballo NP 230 [place] [address] PCP - General Family Medicine 03/14/25 documented as of this encounter
--- OUTSIDE RECORDS SUMMARY | 2025-03-27 09:48 | XMS_ITS | Encounter Summary ---
Author Organization [facility] Address [address] [place] [address] 7t [place] [address] Care Team Providers Care Tea Leaf Reader Name Role Phone Lucero Caraballo BAND NAILER Primary Care Provider [phone] Encounter Details Date Type Department Care Team (Late st Contact Info) Description 03/12/2023 Orders Only [facility] MEDICINE [address] [place] [address] Velvet Negro RN Social History Tobacco Use Types Packs/Day Years [...] Description 05/02/2025 11:30 AM EST Office Visit [address] [address] Lucero Caraballo NP [address] [place] [address] 05/29/2025 10:00 AM EST Office Visit [address] [address] Les Santos MD [address] [place] [address] documented as of this encounter Visit Diagnoses Not on filedocumented in this encounter Care Teams Tea Leaf Reader Relationship Specialty Start Date End Date Lucero Caraballo NP 230 [place] [address] PCP - General Family Medicine 03/14/25 documented as of this encounter
--- OUTSIDE RECORDS SUMMARY | 2025-03-27 09:48 | XMS_ITS | Encounter Summary ---
Author Organization [employer] Address [address] [facility] 7t [place] [address] Care Team Providers Care Clinical Manager Name Role Phone Lucero Caraballo NP Primary Care Provider [phone] Reason for Visit * Reason Comments Med Refill Encounter Details Date Type Department Care Team ([facility] Contact Info) Description 05/23/2024 Refill [facility] MEDICINE [address] [place] [address] Les Santos MD [address] [place] [address] Uncomplicated opioid dependence (CMS/HCC) Social History Tobacco [...] Description 05/02/2025 11:30 AM EST Office Visit [facility] MEDICINE [address] [place] [address] Lucero Caraballo NP [address] [place] [address] 05/29/2025 10:00 AM EST Office Visit [facility] MEDICINE [address] [place] [address] Les Santos MD [address] [place] [address] documented as of this encounter Visit Diagnoses Diagnosis Uncomplicated opioid dependence (CMS/HCC) (HCC) documented in this encounter Additional Health Concerns Assessment Noted Time PHQ-9 Depression Total Score: 0 08/24/19 24 9:55 AM EDT documented as of this encounter Care Teams Clinical Manager Relationship Specialty Start Date End Date Lucero Caraballo NP [address] [place] [address] PCP - General Family Medicine 03/14/25 documented as of this encounter
--- OUTSIDE RECORDS SUMMARY | 2025-03-27 09:48 | XMS_ITS | Encounter Summary ---
Author Organization [employer] Address 75 [facility] 7t [place] [address] Care Team Providers Care Map Drafter Name Role Phone Lucero Caraballo NP Primary Care Provider [phone] Reason for Visit * Reason Comments Med Refill Encounter Details Date Type Department Care Team ([facility] Contact Info) Description 07/18/2024 Refill [facility] MEDICINE 230 [place] [address] Les Santos MD 230 [place] [address] Uncomplicated opioid dependence (CMS/HCC) Social History Tobacco [...] Description 05/02/2025 11:30 AM EST Office Visit [facility] MEDICINE [address] [place] [address] Lucero Caraballo NP [address] [place] [address] 05/29/2025 10:00 AM EST Office Visit [facility] MEDICINE [address] [place] [address] Les Santos MD [address] [place] [address] documented as of this encounter Visit Diagnoses Diagnosis Uncomplicated opioid dependence (CMS/HCC) (HCC) documented in this encounter Additional Health Concerns Assessment Noted Time PHQ-9 Depression Total Score: 0 08/24/19 24 9:55 AM EDT documented as of this encounter Care Teams Map Drafter Relationship Specialty Start Date End Date Lucero Caraballo NP [address] [place] [address] PCP - General Family Medicine 03/14/25 documented as of this encounter
--- OUTSIDE RECORDS SUMMARY | 2025-03-27 09:48 | XMS_ITS | Encounter Summary ---
Author Organization [employer] Address [address] [facility] 7t [place] [address] Care Team Providers Care Die Maker Electronic Name Role Phone Lucero Caraballo NP Primary Care Provider [phone] Reason for Visit * Reason Comments Med Refill Encounter Details Date Type Department Care Team ([facility] Contact Info) Description 02/01/2024 Refill [facility] MEDICINE 230 [place] [address] Les Santos MD 230 [place] [address] Uncomplicated opioid dependence (CMS/HCC) Social History Tobacco [...] Description 05/02/2025 11:30 AM EST Office Visit [facility] MEDICINE [address] [place] [address] Lucero Caraballo NP [address] [place] [address] 05/29/2025 10:00 AM EST Office Visit [facility] MEDICINE [address] [place] [address] Les Santos MD [address] [place] [address] documented as of this encounter Visit Diagnoses Diagnosis Uncomplicated opioid dependence (CMS/HCC) (HCC) documented in this encounter Additional Health Concerns Assessment Noted Time PHQ-9 Depression Total Score: 0 08/24/19 24 9:55 AM EDT documented as of this encounter Care Teams Die Maker Electronic Relationship Specialty Start Date End Date Lucero Caraballo NP [address] [place] [address] PCP - General Family Medicine 03/14/25 documented as of this encounter
[2025-03-27 11:56] LABS: Alanine Aminotransferase 29 U/L (0-31); Albumin Level 4.5 g/dL (3.5-5.0); Alkaline Phosphatase 143 U/L (39-117); Anion Gap 14 (12-20); Aspartate Amino Transferase 28 U/L (5-31); Blood Urea Nitrogen 15 mg/dL (9-16); Calcium 9.4 mg/dL (8.4-10.2); Carbon Dioxide 27 mmol/L (22-29); Chloride 104 mmol/L (96-108); Cholesterol 167 mg/dL (<200); Estimated Glomerular Filt Rate > 60; HDL Cholesterol 52 mg/dL (>40); Potassium 4.2 mmol/L (3.3-5.1); Sodium 141 mmol/L (135-145); Total Protein 7.3 g/dL (6.5-8.0); Triglycerides 88 mg/dL (<150)
== END 2025-03-27 09:16 | disposition home or self-care (01) ==
LOC: HO.HHCL 09:15
PROVIDERS: Emergency Medicine; PCP Nurse Practitioner; Visit Provider Nurse Practitioner
DX: E11.9 Type 2 diabetes mellitus without complications (principal); F11.91 Opioid use, unspecified, in remission
CPT/HCPCS: 36415; 80048; 80061; 80076; 83036

== ENCOUNTER 2025-04-02 18:57 | Emergency (ER) | payer BC, SELFPAY ==
--- NOTE | ~2025-04-02 | XR_ITS ---
CLINICAL HISTORY: fall 4 view right wrist Comparison: None provided Findings: No fractures or dislocations. Mild right wrist osteoarthritis. No radiopaque foreign body. IMPRESSION: 1. No acute fracture or subluxation. This document has been electronically signed by: Dharmesh Mojica MD on 04/02/2025 20:32:11
--- NOTE | ~2025-04-02 | CT_ITS ---
CLINICAL HISTORY: fall CT maxillofacial without contrast Comparison: None provided Findings: No acute fractures. No dislocations. Temporomandibular joints are intact. Paranasal sinuses and mastoid air cells clear. Unremarkable orbital contents. Visualized intracranial contents are within normal limits. No foreign bodies. IMPRESSION: Unremarkable maxillofacial CT. This document has been electronically signed by: Dharmesh Mojica MD on 04/02/2025 21:24:28
--- NOTE | ~2025-04-02 | CT_ITS ---
CLINICAL HISTORY: fall CT cervical spine without contrast Comparison: None provided Findings: Normal vertebral body alignment. Uhig-gg-[id number] multilevel endplate, discogenic and facet arthropathy mainly centered in the mid to lower cervical spine No acute fractures or dislocations. Visualized intracranial contents are unremarkable. Soft tissues of the neck are normal. 1.3 cm right thyroid nodule. Ultrasound may be considered for further evaluation. Lung apices are clear. IMPRESSION: 1. No acute cervical spine fracture or subluxation. 2. Additional findings as above. This document has been electronically signed by: Dharmesh Mojica MD on 04/02/2025 21:20:59
--- NOTE | ~2025-04-02 | CT_ITS ---
CLINICAL HISTORY: fall CT head without contrast Comparison: None provided Findings: No intra-axial mass, midline shift, hydrocephalus, or acute hemorrhage. No significant atrophy-like change or white matter disease. There is no sinus or mastoid fluid. The orbits are within normal limits. There is no acute fracture. IMPRESSION: 1. No acute intracranial findings. This document has been electronically signed by: Dharmesh Mojica MD on 04/02/2025 21:29:23
--- NOTE | ~2025-04-02 | XR_ITS ---
CLINICAL HISTORY: fall 3 view right hand Comparison: None provided Findings: Bones intact. No dislocations. Mild right hand and wrist osteoarthritis. No erosions. No radiopaque foreign body. IMPRESSION: 1. No acute fracture or subluxation. This document has been electronically signed by: Dharmesh Mojica MD on 04/02/2025 20:26:10
[2025-04-02 19:02] VITALS: BP 146/74; PULSE 78; RESP 20; TEMP 36; O2SAT 97; BMI 25.1
--- NOTE | 2025-04-02 19:50 | ED_ITS ---
HPI - General Adult General Chief complaint: Fall Stated complaint: Fall head injury Time Seen by Provider: 04/02/25 21:24 Source: patient and family ( Daughter) Mode of arrival: ambulatory Limitations: no limitations History of Present Illness ED Provider: DR. Olson HPI narrative: 59-year-old female presented for evaluation after sustained a mechanical fall, Happened couple hours ago when she was walking tripped on raised bump on the sidewalk causing her to fall forward patient landed on her chin, tried to ease up the fall using hands and knees. No LOC, no anticoagulat ion therapy. Complaining of headache, genao pain, right hand/ wrist pain. Otherwise no CP, no SOB, no abdominal pain. Related Data Home Medications ?Medication ?Instructions ?Recorded ?Confirmed buprenorphine 1.4 mg-naloxone 0.36 3 tab sublingual DA CHARMAINE 04/03/20 04/03/20 mg sublingual tablet (Zubsolv) Previous Rx's ?Medication ?Instructions ?Recorded lidocaine 5 % topical patch 1 patch topical DAILY #15 ea 05/03/24 metformin 1,000 mg tablet 1,000 mg PO DAILY #90 tabs 0 11/24/24 Allergies Allergy/AdvReac Type Severity Reaction Status Date / Time Penicillins Allergy Mild ITCH/RASH Verified 04/02/25 19:05 Review of Systems Review of Systems: All other systems are reviewed and are negative Constitutional: Reports as per HPI and Reports no additional constitutional complaints Eyes: Reports as per HPI and Reports no additional eye complaints Reports system reviewed and no additional complaints, except as documented Cardiovascular: Reports as per HPI and Reports no additional cardiovascular complaints Respiratory: Reports as per HPI and Reports no additional respiratory complaints Gastrointestinal: Reports as per HPI and Reports no additional gastrointestinal complaints Genitourinary: Reports no additional female genitourinary complaints Musculoskeletal: Reports no additional musculoskeletal complaints Skin/Breast: Reports system reviewed and no additional complaints, except as docu Psychiatric: Reports no additional psychiatric complaints Endocrine: Reports no additional endocrine complaints Hematologic/Lymphatic: Reports no additional hematologic/lymphatic complaints Allergic/Immunologic: Reports no additional allergic/immunologic complaints Reports system reviewed and no additional complaints, except as documented and Reports Abnormal speech present [facility] Past Medical History Medical History Smoker Arthritis Back pain Surgical History H/O tubal ligation H/O laminectomy History of colonoscopy H/O: hysterectomy Hx of appendectomy (2005) H/O hemorrhoidectomy (2007) Family History Family History Father Colon cancer Mother HTN (hypertension) Diverticulitis Social History Social History Alcohol intake: current Alcohol intake frequency: holidays/special occasions only Cigarette Packs Per Day: 0 Cigarettes Per Day: 4 Years Smoked: 17 Second Hand Smoke Exposure: No Advance Directives: No Advance Directives Information Provided: No Current occupational status: employed 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 Blood pressure elevated. Heart rate normal. Respiratory rate normal. Temperature normal. Oxygen saturation normal. Appearance: Alert. Oriented X3. No acute distress. Head: Normal external exam. Normocephalic, Multiple small superficial abrasion on the chin,No Minor signs noted. No raccoon eyes noted Eyes: PERRLA. EOMI. Conjunctiva and sclera normal. Eyelids normal. ENT: TM's Normal. Pharynx normal. Uvula midline. Moist mucous membranes. No trismus noted. No drooling noted. No muffled voice noted. Neck: Normal inspection. Neck supple. FROM. No adenopathy. Thyroid Normal. No meningeal signs. No neck mass noted. CVS: Normal heart rate and rhythm. Heart sound normal. No murmurs noted. Pulses normal throughout. Respiratory: No respiratory distress. Painless inspiration. Breath sounds normal. No wheezes/rales/rhonchi noted. Chest nontender. No accessory muscle usage noted or decreased air movement noted. Abdomen: Soft and nontender. Bowel sounds normal in all 4 quadrants. No distention noted. No organomegaly noted. No visible injury noted. Back: No CVA tenderness. Full range of motion noted. Skin: Skin warm and dry. Normal skin color. Normal skin turgor. No rashes/lesions/lacerations noted. Extremities: No lower extremity edema. Extremities exhibit normal range of motion. Extremities nontender. Neuro: Oriented X 3. Cranial nerve exam: II-XII are grossly intact No motor deficit. No sensory deficit. Reflexes normal. Course Course Course Narrative: RME: 59-year-old female presents to ED for fall. Patient fell onto her face after treatment sidewall. Patient has hematoma above right eye and abrasion of the chin. Patient states right hand pain pain images ordered Reevaluation(s) Reevaluation #1: s/p mechanical fall complaining of headache. Normal neuro exam, GCS of 15, normal head, C-spine, facial CT. No fracture of the right wrist on the x-ray. C-spine CT showing incidental 1.3 cm right thyroid nodule patient was instructed to follow-up with her PCP for further evaluation. Time: 21:35 Medical Decision Making Differential Diagnosis Differential Diagnoses: The differential diagnosis associated with the presentation includes ( Intracranial bleed, cervical spine injury, facial fracture, chest injury, abdominal injury, back injury, extremity injury.) Admission/Observation Consideration of admission/observation: Escalation of care including admission/observation considered Lab Data MDM Lab Attestation statement: I reviewed the patient's lab results. Independent Interpretation I performed an independent interpretation of an: CT Scan ( Head/C-spine /facial: No acute intracranial findings, no facial fracture,Normal vertebral body alignment. [id number] multilevel endplate, discogenic and facet arthropathy mainly centered in the mid to lower cervical spine No acute fractures or dislocations. Visualized intracranial content) Radiology Impression Discussion of test interpretation with radiology: I have reviewed the radiologist's reading. Discharge Plan Discharge Clinical Impression: Fall, Contusion of genao, Closed head injury, Thyroid nodule Patient Disposition: Home, Self-Care Instructions: Thyroid Nodules (ED), Contusion in Adults (ED) Prescriptions: No Action Zubsolv 1.4-0.36 mg tablet, sublingual 3 tab sublingual DAILY lidocaine 5 % adhesive patch,medicated 1 patch topical DAILY Qty: 15 0RF Rx Instructions: leave on most painful area for up to 12 hrs metformin 1,000 mg tablet 1,000 mg PO DAILY Qty: 90 0RF Rx Instructions: for the 1st week, take half tablet b.i.d., then starting the 2nd week, 1 tablet p.o. b.i.d. Interventions: ED Discharge Assessment Last Done: 04/02/25 21:46 Discharge Date/Time: 04/02/25 21:51 Print Language: Sudanese
[2025-04-02 21:46] VITALS: BP 146/74; PULSE 78; RESP 20; TEMP 36; O2SAT 97
--- OUTSIDE RECORDS SUMMARY | 2025-04-03 02:31 | XMS_ITS | Encounter Summary ---
Author Organization [employer] Address [address] [facility] 7t [place] [address] Care Team Providers Care Pool Lifeguard Name Role Phone Lucero Caraballo NP Primary Care Provider [phone] Reason for Visit * Reason Comments Med Refill Encounter Details Date Type Department Care Team ([facility] Contact Info) Description 02/01/2024 Refill [facility] MEDICINE [address] [place] [address] Les Santos MD [address] [place] [address] Uncomplicated opioid dependence (CMS/HCC) Social History Tobacco [...] Description 05/02/2025 11:30 AM EST Office Visit [facility] MEDICINE [address] [place] [address] Lucero Caraballo NP [address] [place] [address] 05/29/2025 10:00 AM EST Office Visit [facility] MEDICINE [address] [place] [address] Les Santos MD [address] [place] [address] documented as of this encounter Visit Diagnoses Diagnosis Uncomplicated opioid dependence (CMS/HCC) (HCC) documented in this encounter Additional Health Concerns Assessment Noted Time PHQ-9 Depression Total Score: 0 08/24/19 24 9:55 AM EDT documented as of this encounter Care Teams Pool Lifeguard Relationship Specialty Start Date End Date Lucero Caraballo NP [address] [place] [address] PCP - General Family Medicine 03/14/25 documented as of this encounter
--- OUTSIDE RECORDS SUMMARY | 2025-04-03 02:31 | XMS_ITS | Encounter Summary ---
Author Organization [employer] Address [address] [facility] 7t [place] [address] Care Team Providers Care Fur Finisher Name Role Phone Lucero Caraballo NP Primary Care Provider [phone] Reason for Visit * Reason Comments Med Refill Encounter Details Date Type Department Care Team ([facility] Contact Info) Description 07/18/2024 Refill [facility] MEDICINE [address] [place] [address] Les Santos MD [address] [place] [address] Uncomplicated opioid dependence (CMS/HCC) Social History Tobacco [...] Description 05/02/2025 11:30 AM EST Office Visit [facility] MEDICINE [address] [place] [address] Lucero Caraballo NP [address] [place] [address] 05/29/2025 10:00 AM EST Office Visit [facility] MEDICINE [address] [place] [address] Les Santos MD [address] [place] [address] documented as of this encounter Visit Diagnoses Diagnosis Uncomplicated opioid dependence (CMS/HCC) (HCC) documented in this encounter Additional Health Concerns Assessment Noted Time PHQ-9 Depression Total Score: 0 08/24/19 24 9:55 AM EDT documented as of this encounter Care Teams Fur Finisher Relationship Specialty Start Date End Date Lucero Caraballo NP [address] [place] [address] PCP - General Family Medicine 03/14/25 documented as of this encounter
--- OUTSIDE RECORDS SUMMARY | 2025-04-03 02:31 | XMS_ITS | Encounter Summary ---
Author Organization [employer] Address [address] [place] [address] Care Team Providers Care Paper Twister Tender Name Role Phone Lucero Caraballo NP Primary Care Provider [phone] Encounter Details Date Type Department Care Team (Late st Contact Info) Description 04/02/2025 Orders Only [facility] External Provider, [facility] Social History Tobacco Use Types Packs/Day Years Used Date Smoking Tobacco: Every Day Cigarettes Smokeless Tobacco: Never Alcohol Use Standard Drinks/Week Comments Not Currently [...] is your housing situation today? I have larydimitrios estevez 03/06/[address] you [...] Description 05/02/2025 11:30 AM EST Office Visit [facility] [address] [place] [address] Lucero Caraballo NP [address] [place] [address] 05/29/2025 10:00 AM EST Office Visit [address] [address] Les Santos MD [address] [place] [address] documented as of this encounter Goals Goal Patient Goal Type Associated Problems Recent Progress Patient-Stated? Author Help patients manage their type 2 diabetes Care Plan Help patients manage their type 2 diabetes No Lucero Caraballo NP Patient has chronic kidney disease Care Plan Patient has chronic kidney disease No Lucero Caraballo NP documented as of this encounter Procedures Procedure Name Priority Date/Time Associated Diagnosis Comments CT HEAD WO CONTRAST Routine 04/02/2025 9 :[address] SINUS FACIAL BONES WO CONTRAST Routine 04/02/2025 9:[address] CERVICAL SPINE WO CONTRAST Routine 04/02/2025 9:20 PM EST XR WRIST 3+ VIEWS RIGHT Routine 04/02/2025 8:32 PM EST XR HAND 3+ VIEWS RIGHT Routine 04/02/2025 8:26 PM EST documented in this encounter Results * CT Head w/o Contrast (04/02/2025 9:29 PM EST) Anatomical Region Laterality Modality Head, Neck Computed Tomogra phy 04/02/2025 9:29 PM EST Narrative 04/02/2025 9:31 PM EST [place] [address] [address] Scan Report Signed Patient: Elke Hoffmann MR#: [id number] : 1965 Acct:[id number] Age/Sex: 59 / F ADM Date: 04/02/25 Loc: HO.ED Attending Dr: Ordering Physician: Vaibhav Her Date of Service: 04/02/25 Procedure(s): CT head/brain wo IV con Accession Number(s): [id number] cc: Lucero Caraballo; Vaibhav Her Report Number: [id number]: Total DLP = 0.00 mGy-cm Reason for Exam: fall CLINICAL HISTORY: fall CT head without contrast Comparison: None provided Findings: No intra-axial mass, midline shift, hydrocephalus, or acute hemorrhage. No significant atrophy-like change or white matter disease. There is no sinus or mastoid fluid. The orbits are within normal limits. There is no acute fracture. IMPRESSION: 1. No acute intracranial findings. This document has been electronically signed by: Dharmesh Mojica MD on 04/02/2025 21:29:23 Dictated By: Dharmesh Mojica MD Signed By: <Electronically signed by Dharmesh Mojica MD in OV> 04/02/252129 DD/ 28 TD/TT: 04/02/252128 Figure Clerk: Procedure Note Donotuseinterpreter, Image - 04/02/[address] [address] [address] Scan Report Signed Patient: Elke HoffmannMR#: [id number] : 1965Acct:[id number] Age/Sex: 59 / FADM Date: 04/02/25 Loc: HO.ED Attending Dr: Ordering Physician: Vaibhav Her Date of Service: 04/02/25 Procedure(s): CT head/brain wo IV con Accession Number(s): [id number] cc: Lucero Caraballo; Vaibhav Her Report Number: [id number]: Total DLP = 0.00 mGy-cm Reason for Exam: fall CLINICAL HISTORY: fall CT head without contrast Comparison: None provided Findings: No intra-axial mass, midline shift, hydrocephalus, or acute hemorrhage. No significant atrophy-like change or white matter disease. There is no sinus or mastoid fluid. The orbits are within normal limits. There is no acute fracture. IMPRESSION: 1. No acute intracranial findings. This document has been electronically signed by: Dharmesh Mojica MD on 04/02/2025 21:29:23 Dictated By: Dharmesh Mojica MD Signed By: <Electronically signed by Dharmesh Mojica MD in OV> 04/02/252129 DD/ 28 TD/TT: 04/02/252128 Figure Clerk: [facility] External Provider IMG CT PROCEDURES Edited Result - Final * CT Sinus Facial Bones w/o Contrast (04/02/2025 9:24 PM EST) Anatomical Region Laterality Modality Computed Tomogra phy 04/02/2025 9:24 PM EST Narrative 04/02/2025 9:25 PM EST [address] [address] [address] Scan Report Signed Patient: Elke Hoffmann MR#: [id number] : 1965 Acct:[id number] Age/Sex: 59 / F ADM Date: 04/02/25 Loc: HO.ED Attending Dr: Ordering Physician: Vaibhav Her Date of Service: 04/02/25 Procedure(s): CT facial bones wo IV con Accession Number(s): [id number] cc: Aparna Caraballo Neil PA Report Number: [id number]: Total DLP = 0.00 mGy-cm Reason for Exam: fall CLINICAL HISTORY: fall CT maxillofacial without contrast Comparison: None provided Findings: No acute fractures. No dislocations. Temporomandibular joints are intact. Paranasal sinuses and mastoid air cells clear. Unremarkable orbital contents. Visualized intracranial contents are within normal limits. No foreign bodies. IMPRESSION: Unremarkable maxillofacial CT. This document has been electronically signed by: Dharmesh Mojica MD on 04/02/2025 21:24:28 Dictated By: Dharmesh Mojica MD Signed By: <Electronically signed by Dharmesh Mojica MD in OV> 04/02/252124 DD/ 23 TD/TT: 04/02/252123 Figure Clerk: Procedure Note Donotuseinterpreter, Image - 04/02/[address] [place] [address] [address] Scan Report Signed Patient: Elke HoffmannMR#: [id number] : 1965Acct:[id number] Age/Sex: 59 / FADM Date: 04/02/25 Loc: HO.ED Attending Dr: Ordering Physician: Vaibhav Her Date of Service: 04/02/25 Procedure(s): CT facial bones wo IV con Accession Number(s): [id number] cc: Aparna Caraballo Neil PA Report Number: [id number]: Total DLP = 0.00 mGy-cm Reason for Exam: fall CLINICAL HISTORY: fall CT maxillofacial without contrast Comparison: None provided Findings: No acute fractures. No dislocations. Temporomandibular joints are intact. Paranasal sinuses and mastoid air cells clear. Unremarkable orbital contents. Visualized intracranial contents are within normal limits. No foreign bodies. IMPRESSION: Unremarkable maxillofacial CT. This document has been electronically signed by: Dharmesh Mojica MD on 04/02/2025 21:24:28 Dictated By: Dharmesh Mojica MD Signed By: <Electronically signed by Dharmesh Mojica MD in OV> 04/02/252124 DD/ 23 TD/TT: 04/02/252123 Figure Clerk: [facility] External Provider IMG CT PROCEDURES Edited Result - Final * CT Cervical Spine w/o Contrast (04/02/2025 9:20 PM EST) Anatomical Region Laterality Modality Spine, C-spine Computed Tomogra phy 04/02/2025 9:20 PM EST Narrative 04/02/2025 9:22 PM EST [place] [address] [address] Scan Report Signed Patient: Elke Hoffmann MR#: [id number] : 1965 Acct:[id number] Age/Sex: 59 / F ADM Date: 04/02/25 Loc: HO.ED Attending Dr: Ordering Physician: Vaibhav Her Date of Service: 04/02/25 Procedure(s): CT cervical spine wo IV con Accession Number(s): [id number] cc: Lucero Caraballo; Vaibhav Her Report Number: [id number]: Total DLP = 1233.00 mGy-cm Reason for Exam: fall CLINICAL HISTORY: fall CT cervical spine without contrast Comparison: None provided Findings: Normal vertebral body alignment. Qhae-pe-bdbvayvm multilevel endplate, discogenic and facet arthropathy mainly centered in the mid to lower cervical spine No acute fractures or dislocations. Visualized intracranial contents are unremarkable. Soft tissues of the neck are normal. 1.3 cm right thyroid nodule. Ultrasound may be considered for further evaluation. Lung apices are clear. IMPRESSION: 1. No acute cervical spine fracture or subluxation. 2. Additional findings as above. This document has been electronically signed by: Dharmesh Mojica MD on 04/02/2025 21:20:59 Dictated By: Dharmesh Mojica MD Signed By: <Electronically signed by Dharmesh Mojica MD in OV> 04/02/252120 DD/ 19 TD/TT: 04/02/252119 Figure Clerk: Procedure Note Donotuseinterpreter, Image - 04/02/[address] [address] [address] Scan Report Signed Patient: Elke HoffmannMR#: [id number] : 1965Acct:[id number] Age/Sex: 59 / FADM Date: 04/02/25 Loc: HO.ED Attending Dr: Ordering Physician: Vaibhav Her Date of Service: 04/02/25 Procedure(s): CT cervical spine wo IV con Accession Number(s): [id number] cc: Lucero Caraballo; Vaibhav Her Report Number: [id number]: Total DLP = 1233.00 mGy-cm Reason for Exam: fall CLINICAL HISTORY: fall CT cervical spine without contrast Comparison: None provided Findings: Normal vertebral body alignment. Jgqf-qp-ayfrysth multilevel endplate, discogenic and facet arthropathy mainly centered in the mid to lower cervical spine No acute fractures or dislocations. Visualized intracranial contents are unremarkable. Soft tissues of the neck are normal. 1.3 cm right thyroid nodule. Ultrasound may be considered for further evaluation. Lung apices are clear. IMPRESSION: 1. No acute cervical spine fracture or subluxation. 2. Additional findings as above. This document has been electronically signed by: Dharmesh Mojica MD on 04/02/2025 21:20:59 Dictated By: Dharmesh Mojica MD Signed By: <Electronically signed by Dharmesh Mojica MD in OV> 04/02/252120 DD/ 19 TD/TT: 04/02/252119 Figure Clerk: us [facility] External Provider IMG CT PROCEDURES Edited Result - Final * XR Wrist 3+ Views Right (04/02/2025 8:32 PM EST) Anatomical Region Laterality Modality Upper Extremities, Wrist Right Radiogr aphic Imaging 04/02/2025 8:32 PM EST Narrative 04/02/2025 8:33 PM EST [address] [address] XRay Report Signed Patient: Elke Hoffmann MR#: [id number] : 1965 Acct:[id number] Age/Sex: 59 / F ADM Date: 04/02/25 Loc: HO.ED Attending Dr: Ordering Physician: Vaibhav Her Date of Service: 04/02/25 Procedure(s): XR wrist RT min 3V Accession Number(s): [id number] cc: Lucero Caraballo; Vaibhav Her Reason for Exam: fall CLINICAL HISTORY: fall 4 view right wrist Comparison: None provided Findings: No fractures or dislocations. Mild right wrist osteoarthritis. No radiopaque foreign body. IMPRESSION: 1. No acute fracture or subluxation. This document has been electronically signed by: Dharmesh Mojica MD on 04/02/2025 20:32:11 Dictated By: Dharmesh Mojica MD Signed By: <Electronically signed by Dharmesh Mojica MD in OV> 04/02/252031 DD/ 31 TD/TT: 04/02/252031 Figure Clerk: Procedure Note Donotuseinterpreter, Image - 04/02/[address] [address] XRay Report Signed Patient: Elke HoffmannMR#: [id number] : 1965Acct:[id number] Age/Sex: 59 / FADM Date: 04/02/25 Loc: HO.ED Attending Dr: Ordering Physician: Vaibhav Her Date of Service: 04/02/25 Procedure(s): XR wrist RT min 3V Accession Number(s): [id number] cc: Lucero Caraballo; Vaibhav Her Reason for Exam: fall CLINICAL HISTORY: fall 4 view right wrist Comparison: None provided Findings: No fractures or dislocations. Mild right wrist osteoarthritis. No radiopaque foreign body. IMPRESSION: 1. No acute fracture or subluxation. This document has been electronically signed by: Dharmesh Mojica MD on 04/02/2025 20:32:11 Dictated By: Dharmesh Mojica MD Signed By: <Electronically signed by Dharmesh Mojica MD in OV> 04/02/252031 DD/ 31 TD/TT: 04/02/252031 Figure Clerk: [facility] External Provider IMG XR PROCEDURES Edited Result - Final * XR Hand 3+ Views Right (04/02/2025 8:26 PM EST) Anatomical Region Laterality Modality Upper Extremities, Hand Right Radiogra phic Imaging 04/02/2025 8:26 PM EST Narrative 04/02/2025 8:26 PM EST [address] [address] XRay Report Signed Patient: Elke Hoffmann MR#: [id number] : 1965 Acct:[id number] Age/Sex: 59 / F ADM Date: 04/02/25 Loc: HO.ED Attending Dr: Ordering Physician: Vaibhav Her Date of Service: 04/02/25 Procedure(s): XR hand RT min 3V Accession Number(s): [id number] cc: Lucero Caraballo; Vaibhav Her Reason for Exam: fall CLINICAL HISTORY: fall 3 view right hand Comparison: None provided Findings: Bones intact. No dislocations. Mild right hand and wrist osteoarthritis. No erosions. No radiopaque foreign body. IMPRESSION: 1. No acute fracture or subluxation. This document has been electronically signed by: Dharmesh Mojica MD on 04/02/2025 20:26:10 Dictated By: Dharmesh Mojica MD Signed By: <Electronically signed by Dharmesh Mojica MD in OV> 04/02/252025 DD/ 25 TD/TT: 04/02/252025 Figure Clerk: Procedure Note Rg, Image - 04/02/[address] [address] XRay Report Signed Patient: Elke HoffmannMR#: [id number] : 1965Acct:[id number] Age/Sex: 59 / FADM Date: 04/02/25 Loc: HO.ED Attending Dr: Ordering Physician: Vaibhav Her Date of Service: 04/02/25 Procedure(s): XR hand RT min 3V Accession Number(s): [id number] cc: Lucero Caraballo; Vaibhav Her Reason for Exam: fall CLINICAL HISTORY: fall 3 view right hand Comparison: None provided Findings: Bones intact. No dislocations. Mild right hand and wrist osteoarthritis. No erosions. No radiopaque foreign body. IMPRESSION: 1. No acute fracture or subluxation. This document has been electronically signed by: Dharmesh Mojica MD on 04/02/2025 20:26:10 Dictated By: Dharmesh Mojica MD Signed By: <Electronically signed by Dharmesh Mojica MD in OV> 04/02/252025 DD/ 25 TD/TT: 04/02/252025 Figure Clerk: [facility] External Provider IMG XR PROCEDURES Edited Result - Final documented in this encounter Visit Diagnoses Not on filedocumented in this encounter Additional Health Concerns Active Problems Noted Date Diagnosed Date Help patients manage their type 2 diabetes 03/14 Patient has chronic kidney disease 03/14/2025 Assessment Noted Time PHQ-9 Depression Total Score: 2 03/06/20 10:00 AM EST documented as of this encounter Care Teams Paper Twister Tender Relationship Specialty Start Date End Date Lucero Caraballo NP [address] [place] [address] PCP - General Family Medicine 03/14/25 documented as of this encounter
--- OUTSIDE RECORDS SUMMARY | 2025-04-03 02:31 | XMS_ITS | Encounter Summary ---
Author Organization [employer] Address [address] [facility] [address] [place] [address] Care Team Providers Care Inspector Heating And Refrigeration Name Role Phone Lucero Caraballo NP Primary Care Provider [phone] Reason for Visit * Reason Comments Med Refill Encounter Details Date Type Department Care Team ([facility] Contact Info) Description 09/12/2024 Refill [facility] [address] [place] [address] Les Santos MD [address] [place] [address] Uncomplicated opioid dependence (CMS/HCC) Social History Tobacco [...] Description 05/02/2025 11:30 AM EST Office Visit [facility] [address] [place] [address] Lucero Caraballo NP [address] [place] [address] 05/29/2025 10:00 AM EST Office Visit [facility] [address] [place] [address] Les Santos MD [address] [place] [address] documented as of this encounter Visit Diagnoses Diagnosis Uncomplicated opioid dependence (CMS/HCC) (HCC) documented in this encounter Additional Health Concerns Assessment Noted Time PHQ-9 Depression Total Score: 0 08/24/19 24 9:55 AM EDT documented as of this encounter Care Teams Inspector Heating And Refrigeration Relationship Specialty Start Date End Date Lucero Caraballo NP [address] [place] [address] PCP - General Family Medicine 03/14/25 documented as of this encounter
--- OUTSIDE RECORDS SUMMARY | 2025-04-03 02:31 | XMS_ITS | Encounter Summary ---
Author Organization [employer] [facility] Address [address] [place] [address] [address] [place] [address] Care Team Providers Care Facility Technician Name Role Phone Lucero Caraballo NP Primary Care Provider [phone] Reason for Visit * Reason Comments Med Refill Encounter Details Date Type Department Care Team (Late st Contact Info) Description 06/22/2023 Refill [facility] [address] [place] [phone] Les Santos MD [address] [place] [address] Uncomplicated opioid dependence (CMS/HCC) Social History Tobacco [...] 11:30 AM EST Office Visit [facility] [address] [place] [address] Lucero Caraballo NP [address] [place] [address] 05/29/2025 10:00 AM EST Office Visit [facility] [address] [place] [address] Les Santos MD [address] [place] [address] documented as of this encounter Visit Diagnoses Diagnosis Uncomplicated opioid dependence (CMS/HCC) (HCC) documented in this encounter Care Teams Facility Technician Relationship Specialty Start Date End Date Lucero Caraballo NP [address] [place] [address] PCP - General Family Medicine 03/14/25 documented as of this encounter
--- OUTSIDE RECORDS SUMMARY | 2025-04-03 02:31 | XMS_ITS | Encounter Summary ---
Author Organization [employer] [facility] Address [address] [place] [address] [address] [place] [address] Care Team Providers Care Desktop Publishing Specialist Name Role Phone Lucero Caraballo NP Primary Care Provider [phone] Reason for Visit * Reason Comments Med Refill Encounter Details Date Type Department Care Team (Late st Contact Info) Description 03/02/2023 Refill [facility] [address] [place] [phone] Les Santos MD [address] [place] [address] Uncomplicated opioid dependence (CMS/HCC) Social History Tobacco [...] Description 05/02/2025 11:30 AM EST Office Visit [facility] [address] [place] [address] Lucero Caraballo NP [address] [place] [address] 05/29/2025 10:00 AM EST Office Visit [facility] [address] [place] [address] Les Santos MD [address] [place] [address] documented as of this encounter Visit Diagnoses Diagnosis Uncomplicated opioid dependence (CMS/HCC) (HCC) documented in this encounter Care Teams Desktop Publishing Specialist Relationship Specialty Start Date End Date Lucero Caraballo NP [address] [place] [address] PCP - General Family Medicine 03/14/25 documented as of this encounter
--- OUTSIDE RECORDS SUMMARY | 2025-04-03 02:31 | XMS_ITS | Clinical Summary ---
Author Organization [employer] Address [address] [facility] [address]t [place] [address] Care Team Providers Care On Car Supervisor Name Role Phone Lucero Caraballo NP Primary Care Provider [phone] Allergies Active Allergy Reactions Criticality Noted Date Comments Penicillin V 06/06/2010 Childhood reaction: rash Medications naloxone (Narcan) 4 mg/0.1 mL nasal spray spray 0.1 milliliter by intranasal route in 1 nostril may repeat dose every 2-3 minutes as needed alternating nostrils with each dose 03/11/20 21 Active buprenorphine -naloxone (Suboxone) 2-0.5 MG per sublingual filmIndicatio ns:Uncomplica tino opioid dependence (CMS/HCC) ([facility]) Place 3 Film under the tongue Once per day. 84 Film 2 02/28/20 25 026 Active metFORMIN (Glucophage) 850 MG tabletIndicat ions:Type 2 diabetes mellitus without complication, without long-term current use of insulin ([facility]) Take 1 tablet (850 mg) by mouth [...] cleanup (will not trigger notification to Pharmacy)) metFORMIN [...] Encounters Date Type Department Care Team Description 04/02/2025 Orders Only [facility] External Provider, [facility] 03/14/2025 2:00 PM EST Office Visit [facility] [address] [place] [phone] Lucero Caraballo NP Encounter to establish care with new provider (Primary Dx); Encounter for screening mammogram for malignant neoplasm of breast; Screening for colon cancer; Type 2 diabetes mellitus without complication, without long-term current use of insulin (HCC); Encounter for health-related screening 03/14/2025 Travel 03/13/2025 Telephone [facility] [address] [place] [phone] Roger Rivas MA CHARTPREP 03/07/2025 Patient Outreach [facility] [address] [place] [address] Lucero Caraballo NP Pre-visit Planning (SDOH was already completed) 03/06/2025 10:00 AM EST Office Visit [facility] [address] [place] [address] [phone] Les Santos MD Opioid dependence on maintenance agonist therapy, no symptoms (CMS/HCC) (HCC) (Primary Dx); Tobacco use 03/06/2025 Patient Outreach [facility] [address] [place] [address] [phone] Cordell Brooks [facility] 03/06/2025 Travel 02/26/2025 Refill [facility] [address] [place] [address] [phone] Velvet Negro RN Uncomplicated opioid dependence (CMS/HCC) (HCC) from Last 3 Months Immunizations Immunization Administration Dates Next Due Hep B, adult 01/17/2007,08/20/2006,07/20/2006 Influenza injectable quadriv alent IIV4 with preservative 02/27/2019,02/05/2015 Influenza, IIV3, injectable 01/02/2014 Influenza, Split (incl. anthony fied surface antigen) 03/03/2013,05/09/2012 Moderna Covid-19 Vaccine 12+ 10/21/2021,09/26/19,08/27/2020 TD (adult), 2 Lf tetanus tox oid, [...] Description 05/02/2025 11:30 AM EST Office Visit [facility] [address] [place] [phone] Lucero Caraballo NP [address] [place] [address] 05/29/2025 10:00 AM EST Office Visit [facility] [address] [place] [address] Les Santos MD [address] [place], [place] [phone] Health Maintenance Due Date Last Done Comments CT Colonography 1967 FIT DNA/Cologuard 1967 FIT 1967 FOBT 1967 Sigmoidoscopy 1967 Diabetes: Foot Exam 10/01/1977 Eye Exam 10/01/1977 Diabetes: Urine Protein Screening 10/01/1986 Pneumococcal Vaccine: 50+ Years (1 of 2 - PCV) 10/01/1986 Pap Smear 10/01/1988 Cervical Cancer Screening 10/01/1997 HPV/Cotest 10/01/1997 Mammogram 2007 Zoster Vaccines (1 of 2) 10/01/2017 COVID-19 Vaccine ( season) 2024 10/21/2021, 09/25/2020, 08/27/2020 Influenza Vaccine (#1) 2024 9, 02/05/2015, 01/02/2014, Additional history exists Colonoscopy 04/09/2025 04/09/2020 Colorectal Cancer Screening 04/09/2025 Diabetes: Hemoglobin A1C 06/25/2025 025, 11/24/2024, 07/30/2021 Alcohol/Substance Use Screening 03/06/2026 03/06/2025 Depression Screening 03/06/2026 03/06/2025, 03/06/20 25 SDOH Screening 03/06/2026 03/06/2025 Disability Screening 03/14/2026 03/14/2025 Tobacco Screening 03/14/2026 03/14/2025 Lipid Panel 03/27/2026 03/27/2025, 04/0 09/2021, 09/03/2020 DTaP/Tdap/Td Vaccines (2 - Td or Tdap) [...] VIEWS RIGHT Routine 04/02/2025 8:26 PM EST HEPATIC FUNCTION PANEL Routine 03/27/2025 9:22 AM EST BASIC METABOLIC PANEL Routine 03/27/2025 9:22 AM EST Type 2 diabetes mellitus without complication, without long-term current use of insulin (HCC) LIPID PANEL, STANDARD Routine 03/27/2025 9:22 AM EST Type 2 diabetes mellitus without complication, without long-term current use of insulin (HCC) HEMOGLOBIN A1C Routine 03/27/2025 9:22 AM EST Type 2 diabetes mellitus without complication, without long-term current use of insulin (HCC) POCT LACEY-14 URINE DRUG SCREEN Routine 03/06/2025 10:02 AM EST Opioid dependence on maintenance agonist therapy, no symptoms (CMS/HCC) (HCC) HEPATITIS C AB W/REFL TO HCV RNA, QN, PCR Routine 07/18/2024 10:48 AM EDT Opioid use disorder in remission HIV 1/2 ANTIGEN/ANTIBODY, FOURTH GENERATION W/RFL Routine 07/18/2024 10:48 AM EDT Opioid use disorder in remission HM COLONOSCOPY Routine 04/09/2020 10:50 AM EST from Last 3 Months or Most Recently Relevant to Health Maintenance Results * CT Head w/o Contrast (04/02/2025 9:29 PM EST) Anatomical Region Laterality Modality Head, Neck Computed Tomogra phy 04/02/2025 9:29 PM EST Narrative 04/02/2025 9:31 PM EST [address] [address] [address] Scan Report Signed Patient: Elke Hoffmann MR#: [id number] : 1965 Acct:[id number] Age/Sex: 59 / F ADM Date: 04/02/25 Loc: HO.ED Attending Dr: Ordering Physician: Vaibhav Her Date of Service: 04/02/25 Procedure(s): CT head/brain wo IV con Accession Number(s): [id number] cc: Aparna Caraballo Neil PA Report Number: [id number]: Total DLP = 0.00 mGy-cm Reason for [...] in OV> 04/02/252129 DD/ 28 TD/TT: 04/02/252128 Insurance Sales Producer: Procedure Note Donotuseinterpreter, Image - 04/02/[address] [place] [address] [address] Scan Report Signed Patient: Elke Hoffmann#: [id number] : 1965Acct:[id number] Age/Sex: 59 / FADM Date: 04/02/25 Loc: HO.ED Attending Dr: Ordering Physician: Vaibhav Her Date of Service: 04/02/25 Procedure(s): CT head/brain wo IV con Accession Number(s): [id number] cc: Aparna Caraballo Neil PA Report Number: [id number]: Total DLP = 0.00 mGy-cm Reason for [...] in OV> 04/02/252129 DD/ 28 TD/TT: 04/02/252128 Insurance Sales Producer: [facility] External Provider IMG CT PROCEDURES Edited Result - Final * CT Sinus Facial Bones w/o Contrast (04/02/2025 9:24 PM EST) Anatomical Region Laterality Modality Computed Tomogra phy 04/02/2025 9:24 PM EST Narrative 04/02/2025 9:25 PM EST [address] [address] [address] Scan Report Signed Patient: Elke Hoffmann MR#: [id number] : 1965 Acct:[id number] Age/Sex: 59 / F ADM Date: 04/02/25 Loc: HO.ED Attending Dr: Ordering Physician: Vaibhav Her Date of Service: 04/02/25 Procedure(s): CT facial bones wo IV con Accession Number(s): [id number] cc: Lucreo Caraballo; Vaibhav Her Report Number: [id number]: Total DLP = 0.00 mGy-cm Reason for [...] in OV> 04/02/252124 DD/ 23 TD/TT: 04/02/252123 Insurance Sales Producer: Procedure Note Donotuseinterpreter, Image - 04/02/[address] [address] [address] Scan Report Signed Patient: Elke HoffmannMR#: [id number] : 1965Acct:[id number] Age/Sex: 59 / FADM Date: 04/02/25 Loc: HO.ED Attending Dr: Ordering Physician: Vaibhav Her Date of Service: 04/02/25 Procedure(s): CT facial bones wo IV con Accession Number(s): [id number] cc: Lucero Caraballo; Vaibhav Her Report Number: [id number]: Total DLP = 0.00 mGy-cm Reason for [...] in OV> 04/02/252124 DD/ 23 TD/TT: 04/02/252123 Insurance Sales Producer: [facility] External Provider IMG CT PROCEDURES Edited Result - Final * CT Cervical Spine w/o Contrast (04/02/2025 9:20 PM EST) Anatomical Region Laterality Modality Spine, C-spine Computed Tomogra phy 04/02/2025 9:20 PM EST Narrative 04/02/2025 9:22 PM EST [address] [address] [address] Scan Report Signed Patient: Elke Hoffmann MR#: [id number] : 1965 Acct:[id number] Age/Sex: 59 / F ADM Date: 04/02/25 Loc: HO.ED Attending Dr: Ordering Physician: Vaibhav Her Date of Service: 04/02/25 Procedure(s): CT cervical spine wo IV con Accession Number(s): [id number] cc: Aparna Caraballo Neil PA Report Number: [id number]: Total DLP = 1233.00 mGy-cm Reason for Exam: fall CLINICAL HISTORY: fall CT cervical spine without contrast Comparison: None provided Findings: Normal vertebral body alignment. Ejlf-vn-vkytlsui multilevel endplate, discogenic and facet arthropathy mainly [...] in OV> 04/02/252120 DD/ 19 TD/TT: 04/02/252119 Insurance Sales Producer: Procedure Note Donotuseinterpreter, Image - 04/02/[address] [place] [address] [address] Scan Report Signed Patient: Elke HoffmannMR#: [id number] : 1965Acct:[id number] Age/Sex: 59 / FADM Date: 04/02/25 Loc: HO.ED Attending Dr: Ordering Physician: Vaibhav Her Date of Service: 04/02/25 Procedure(s): CT cervical spine wo IV con Accession Number(s): [id number] cc: Aparna Caraballo Neil PA Report Number: [id number]: Total DLP = 1233.00 mGy-cm Reason for Exam: fall CLINICAL HISTORY: fall CT cervical spine without contrast Comparison: None provided Findings: Normal vertebral body alignment. Jjtz-uv-yepikgis multilevel endplate, discogenic and facet arthropathy mainly [...] in OV> 04/02/252120 DD/ 19 TD/TT: 04/02/252119 Insurance Sales Producer: [facility] External Provider IMG CT PROCEDURES Edited Result - Final * XR Wrist 3+ Views Right (04/02/2025 8:32 PM EST) Anatomical Region Laterality Modality Upper Extremities, Wrist Right Radiogr aphic Imaging 04/02/2025 8:32 PM EST Narrative 04/02/2025 8:33 PM EST [place] [address] XRay Report Signed Patient: Elke Hoffmann MR#: [id number] : 1965 Acct:[id number] Age/Sex: 59 / F ADM Date: 04/02/25 Loc: HO.ED Attending Dr: Ordering Physician: Vaibhav Her Date of Service: 04/02/25 Procedure(s): XR wrist RT min 3V Accession Number(s): [id number] cc: Lucero Caraballo; Vaibhav Her Reason for [...] in OV> 04/02/252031 DD/ 31 TD/TT: 04/02/252031 Insurance Sales Producer: Procedure Note Karotlesainterpreter, Image - 04/02/[address] [address] XRay Report Signed Patient: Elke HoffmannMR#: [id number] : 1965Acct:[id number] Age/Sex: 59 / FADM Date: 04/02/25 Loc: HO.ED Attending Dr: Ordering Physician: Vaibhav Her Date of Service: 04/02/25 Procedure(s): XR wrist RT min 3V Accession Number(s): [id number] cc: Lucero Caraballo; Vaibhav Her Reason for [...] in OV> 04/02/252031 DD/ 31 TD/TT: 04/02/252031 Insurance Sales Producer: [facility] External Provider IMG XR PROCEDURES Edited Result - Final * XR Hand 3+ Views Right (04/02/2025 8:26 PM EST) Anatomical Region Laterality Modality Upper Extremities, Hand Right [facility] 04/02/2025 8:26 PM EST Narrative 04/02/2025 8:26 PM EST [address] [address] XRay Report Signed Patient: Elke Hoffmann MR#: [id number] : 1965 Acct:[id number] Age/Sex: 59 / F ADM Date: 04/02/25 Loc: HO.ED Attending Dr: Ordering Physician: Vaibhav Her Date of Service: 04/02/25 Procedure(s): XR hand RT min 3V Accession Number(s): [id number] cc: Lucero Caraballo; Vabihav Her Reason for Exam: fall CLINICAL HISTORY: [...] in OV> 04/02/252025 DD/ 25 TD/TT: 04/02/252025 Insurance Sales Producer: Procedure Note Rg, Zohra - 04/02/2025 [place] [address] XRay Report Signed Patient: Elke HoffmannMR#: [id number] : 1965Acct:[id number] Age/Sex: 59 / FADM Date: 04/02/25 Loc: .ED Attending Dr: Ordering Physician: Vaibhav Her Date of Service: 04/02/25 Procedure(s): XR hand RT min 3V Accession Number(s): [id number] cc: Lucero Caraballo; Vaibhav Her Reason for [...] in OV> 04/02/252025 DD/ 25 TD/TT: 04/02/252025 Insurance Sales Producer: [facility] External Provider IMG XR PROCEDURES Edited Result - Final * (ABNORMAL) Hemoglobin A1c (03/27/2025 9:22 AM EST) Hemoglobin A1c 7.1(H) <6.0 % [facility] Comment:Hemoglobin A1C Refer ence Range Adults: 4.8 - 6.0 % Non diabetic: < 6.0 % Goal: < 7.0 %Additional Action Suggested: > 8.0 %Note: Hemoglobin A1c results are invalid for patients with abnormal amounts of HbF. Blood transfusions may impact the HbA1c concentration in the patient sample. Estimated Average Glucose 157 mg/dL [facility] Comment:eAG = Estimated ave rage glucose which is %A1C expressed asaverage glucose, using the formula of the U9W-BvqmkxdQpklsqr Glucose study (ADAG), Diabetes Care, Vol.31,#8,2007 Blood Venous blood specimen / Unknown 03/27/2025 9:22 AM EST 03/27/2025 11:24 AM EST Lucero Caraballo NP LAB BLOOD ORDERABLES Final Resu lt [facility] [address] [place] [phone] * (ABNORMAL) Hepatic Function Panel (03/27/2025 9:22 AM EST) Bilirubin, Total 0.7 0.0 - 1.0 mg/dL [facility] Bilirubin, Direct 0.2 0.0 - 0.5 mg/dL [facility] Aspartate Amino Transferase 28 5 - 31 U/L [facility] Alanine Aminotransferase 29 0 - 31 U/L [facility] Total Protein 7.3 6.5 - 8.0 g/dL [facility] Albumin Level 4.5 3.5 - 5.0 g/dL [facility] Alkaline Phosphatase 143(H) 39 - 117 U/L [facility] 03/27/2025 9:22 AM EST 03/27/2025 11:24 AM EST Les Santos MD LAB BLOOD ORDERABLES Final Res ult Performing Organization Address [facility] de Phone Number [facility] [address] [place] [address] [phone] * Lipid Panel, Standard (03/27/2025 9:22 AM EST) Triglycerides 88 <150 mg/dL [facility] Comment:Desirable Triglyceri de: less than 150 mg/dLBorderline High Triglyceride 150-199 mg/dLHigh Triglyceride: 200-499 mg/dLVery High Triglyceride: greater than or equal to 5OO mg/dL Cholesterol 167 <200 mg/dL [facility] Comment:Desirable Cholestero l: less than 200 mg/dLBorderline High Cholesterol: 200-239 mg/dLHigh Cholesterol: greater than 239 mg/dL LDL Cholesterol Calculated 98 <100 mg/dL [facility] Comment:Desirable LDL: less than 100 mg/dLNear Optimal/Above Optimal LDL: 110- 129 mg/dLBorderline High LDL: 130-159 mg/dLHigh LDL: 160-189 mg/dLVery High LDL: greater than or equal to 190 mg/dL HDL Cholesterol 52 >40 mg/dL [facility] Comment:Desirable HDL: great er than 40 mg/dL Note: This HDL assay may give artificially low results in patients with liver disease. Blood Venous blood specimen / Unknown 03/27/2025 9:22 AM EST 03/27/2025 11:24 AM EST Lucero Caraballo NP LAB BLOOD ORDERABLES Final Resu lt Performing Organization Address [facility] Co de Phone Number [facility] [address] [place] [address] [phone] * (ABNORMAL) Basic Metabolic Panel (03/27/2025 9:22 AM EST) Sodium 141 135 - 145 mmol/L [facility] Potassium 4.2 3.3 - 5.1 mmol/L [facility] Chloride 104 96 - 108 mmol/L [facility] Carbon Dioxide 27 22 - 29 mmol/L [facility] Anion Gap 14 12 - 20 [facility] Urea Nitrogen (BUN) 15 9 - 16 mg/dL [facility] Creatinine, Serum 0.62 0.5 - 1.4 mg/dL [facility] Estimated Glomerular Filt Rate >60 [facility] Comment:Chronic Kidney Disea se: Estimated GFR < 60 mL/min/1.06s6Odgmft Kidney Disease: Estimated GFR < 15 mL/min/1.73m2 Glucose 119(H) 60 - 115 mg/dL [facility] Calcium 9.4 8.4 - 10.2 mg/dL [facility] Blood Venous blood specimen / Unknown 03/27/2025 9:22 AM EST 03/27/2025 11:24 AM EST Lucero Caraballo NP LAB BLOOD ORDERABLES Final Resu lt [facility] [address] [place] [phone] * (ABNORMAL) POCT LACEY-14 Urine Drug Screen [...] CARE TEST ENTER/EDIT ORDERABLES Final Result * Hepatitis C Antibody with Reflex to HCV, RNA, Quantitative, Real-Time PCR (07/18/2024 10:48 AM EDT) Hepatitis C Antibody Nonreactive Nonreactive [facility] Comment:Antibodies to HCV no t detected; does not exclude early acuteHCV infection. Blood Venous blood specimen / Unknown 07/18/2024 10:48 AM EDT 07/18/2024 1:38 PM EDT Les Santos MD LAB BLOOD ORDERABLES Final Res ult Performing Organization Address [facility]/ZIP Co de Phone Number [facility] [address] [place] [phone] * HIV-1/2 Antigen and Antibodies, Fourth Generation, with Reflexes (07/18/2024 10:48 AM EDT) HIV AB/AG Nonreactive Nonreactive [facility] Comment:HIV-1 p24 Ag and/or HIV-1/HIV-2 Ab not detected.A test result that is nonreactive does not exclude thepossibility of exposure to or infection with HIV-1 and/orHIV-2. Nonreactive results in this assay for individualswith prior exposure to HIV-1 and/or HIV-2 may be due toantigen and antibody levels that are below the limit ofdetection of this assay.The Payment plugin HIV Ag/Ab Combo assay result andsupplemental assay results should be interpreted inconjunction with the patient's clinical presentation,history and other laboratory results. If the results areinconsistent with clinical evidence, additional testing issuggested to confirm the result. Blood Venous blood specimen / Unknown 07/18/2024 10:48 AM EDT 07/18/2024 1:38 PM EDT Les Santos MD LAB BLOOD ORDERABLES Final Res ult Performing Organization Address City/[facility]/ZIP Co de Phone Number [facility] [address] [place] [address] [phone] * Hm Colonoscopy (04/09/2020 10:50 AM EST) Colonoscopy Normal Normal Narrative Sammie Marin - 04/09/2020 10:50 AM EST Recommended 5 year follow up [facility] Provider HEALTH MAINTENANCE Final Result from Last 3 Months or Most Recently Relevant to Health Maintenance Additional Health Concerns Active Problems Noted Date Diagnosed Date Help patients manage their type 2 diabetes 03/14 Patient has chronic kidney disease 03/14/2025 Insurance [facility] PPO Care Teams On Car Supervisor Relationship Specialty Start Date End Date Lucero Caraballo NP [address] [place] [phone] PCP - General Family Medicine 03/14/25
--- OUTSIDE RECORDS SUMMARY | 2025-04-03 02:31 | XMS_ITS | Encounter Summary ---
Author Organization [facility] Address [address] [place] [address] [address] [place] [address] Care Team Providers Care Kick Press Operator Name Role Phone Lucero Caraballo NP Primary Care Provider Reason for Visit * Reason Comments Med Refill Encounter Details Date Type Department Care Team (Late st Contact Info) Description 08/17/2023 Refill [facility] [address] [place] [phone] Les Santos MD [address] [place] [address] Uncomplicated opioid dependence (CMS/HCC) Social History Tobacco [...] Description 05/02/2025 11:30 AM EST Office Visit [facility] [address] [place] [address] Lucero Caraballo NP [address] [place] [address] 05/29/2025 10:00 AM EST Office Visit [facility] [address] [place] [address] Les Santos MD [address] [place] [address] documented as of this encounter Visit Diagnoses Diagnosis Uncomplicated opioid dependence (CMS/HCC) (HCC) documented in this encounter Care Teams Kick Press Operator Relationship Specialty Start Date End Date Lucero Caraballo NP [address] [place] [address] PCP - General Family Medicine 03/14/25 documented as of this encounter
--- OUTSIDE RECORDS SUMMARY | 2025-04-03 02:31 | XMS_ITS | Encounter Summary ---
Author Organization [employer] Address [address] [facility] 7t [place] [address] Care Team Providers Care Aqueduct And Reservoir Keeper Name Role Phone Lucero Caraballo NP Primary Care Provider [phone] Encounter Details Date Type Department Care Team (Late st Contact Info) Description 10/06/2022 Abstract [facility] [address] [place] [phone] Name, MD Reddy [address] [place] [phone] Social History Tobacco Use Types Packs/Day Years [...] Description 05/02/2025 11:30 AM EST Office Visit [facility] [address] [place] [phone] Lucero Caraballo NP [address] [place] [address] 05/29/2025 10:00 AM EST Office Visit [facility] [address] [facility] [place] [address] Les Santos MD [address] [place] [address] documented as of this encounter Procedures Procedure [...] on filedocumented in this encounter Care Teams Aqueduct And Reservoir Keeper Relationship Specialty Start Date End Date Lucero Caraballo NP [address] [place] [address] PCP - General Family Medicine 03/14/25 documented as of this encounter
--- OUTSIDE RECORDS SUMMARY | 2025-04-03 02:31 | XMS_ITS | Encounter Summary ---
Author Organization [employer] Address [address] [facility] 7t [place] [address] Care Team Providers Care Theoretical Physics Teacher Name Role Phone Lucero Caraballo NP Primary Care Provider [phone] Reason for Visit * Reason Comments Med Refill Encounter Details Date Type Department Care Team ([facility] Contact Info) Description 05/23/2024 Refill [facility] [address] [place] [address] Les Santos MD [address] [place] [address] Uncomplicated opioid dependence (CMS/HCC) Social History Tobacco [...] Office Visit [facility] [address] [place] [phone] Lucero Caraballo NP [address] [place] [address] 05/29/2025 10:00 AM EST Office Visit [facility] [address] [place] [phone] Les Santos MD [address] [place] [address] documented as of this encounter Visit Diagnoses Diagnosis Uncomplicated opioid dependence (CMS/HCC) (HCC) documented in this encounter Additional Health Concerns Assessment Noted Time PHQ-9 Depression Total Score: 0 08/24/19 24 9:55 AM EDT documented as of this encounter Care Teams Theoretical Physics Teacher Relationship Specialty Start Date End Date Lucero Caraballo NP [address] [place] [phone] PCP - General Family Medicine 03/14/25 documented as of this encounter
--- OUTSIDE RECORDS SUMMARY | 2025-04-03 02:31 | XMS_ITS | Encounter Summary ---
Author Organization [facility] Address [address] [place] [address] [address] [place] [address] Care Team Providers Care Biostatistics Manager Name Role Phone Lucero Caraballo NP Primary Care Provider [phone] Reason for Visit * Reason Comments Med Refill Encounter Details Date Type Department Care Team (Late st Contact Info) Description 11/10/2022 Refill [facility] [address] [place] [phone] Les Santos MD [address] [place] [address] Uncomplicated opioid dependence (CMS/HCC) Social History Tobacco [...] Description 05/02/2025 11:30 AM EST Office Visit [facility] [address] [place] [address] Lucero Caraballo NP [address] [place] [address] 05/29/2025 10:00 AM EST Office Visit [facility] [address] [place] [address] Les Santos MD [address] [place] [address] documented as of this encounter Visit Diagnoses Diagnosis Uncomplicated opioid dependence (CMS/HCC) (HCC) documented in this encounter Care Teams Biostatistics Manager Relationship Specialty Start Date End Date Lucero Caraballo NP [address] [place] [address] PCP - General Family Medicine 03/14/25 documented as of this encounter
--- OUTSIDE RECORDS SUMMARY | 2025-04-03 02:31 | XMS_ITS | Encounter Summary ---
Author Organization [employer] [facility] Address [address] [place] [address] [address] [place] [address] Care Team Providers Care Production Manager Name Role Phone Lucero Caraballo ORDNANCE KEEPER Primary Care Provider [phone] Encounter Details Date Type Department Care Team (Late st Contact Info) Description 03/12/2023 Orders Only [facility] [address] [place] [id number] Velvet Negro RN Social History Tobacco Use [...] Description 05/02/2025 11:30 AM EST Office Visit [address] [address] Lucero Caraballo NP [address] [place] [phone] 05/29/2025 10:00 AM EST Office Visit [address] [address] Les Santos MD [address] [place] [phone] documented as of this encounter Visit Diagnoses Not on filedocumented in this encounter Care Teams Production Manager Relationship Specialty Start Date End Date Lucero Caraballo NP [address] [place] [address] PCP - General Family Medicine 03/14/25 documented as of this encounter
== END 2025-04-02 21:51 | disposition home or self-care (01) ==
PROVIDERS: Emergency Provider Emergency Medicine; PCP Nurse Practitioner
DX: S80.11XA Contusion of right lower leg, initial encounter (principal); M79.641 Pain in right hand; S00.81XA Abrasion of other part of head, initial encounter; E04.1 Nontoxic single thyroid nodule; S09.90XA Unspecified injury of head, initial encounter; W01.0XXA Fall on same level from slipping, tripping and stumbling without subsequent striking against object, initial encounter; Y93.89 Activity, other specified; Y92.480 Sidewalk as the place of occurrence of the external cause; Y99.8 Other external cause status
CPT/HCPCS: 70450; 70486; 72125; 73110; 73130; 99282; 99284

== ENCOUNTER → 2025-04-02 19:42 | Outpatient (BNV) | payer BC, SELFPAY | PROVIDERS: PCP Nurse Practitioner; Visit Provider Radiology Diagnostic Radiology | DX: Z04.3 Encounter for examination and observation following other accident (principal); R51.9 Headache, unspecified | CPT/HCPCS: 70450; 70486; 72125; 73110; 73130 ==